=== PATIENT | female | born 1955 | race Caucasian/White ===

== ENCOUNTER 2017-07-09 08:45 | Day surgery (SDC) | payer BC ==
[~2017-07-09 08:45] MED LIST: Acetaminophen TAB* 325 MG PO PRN; Buffered Lidocaine 0.9% SYRIN* 5 ML/SYR SYRINGE INTRADERM ONE
[2017-07-09] MEDS ORDERED: Midazolam* 1 MG/ML 2 ML VIAL (2 MG) ONE (09:19)
[2017-07-09] MEDS ORDERED: Phenylephrine 2.5% OPTH.SOL* 2 ML BTL ONE (09:54)
[2017-07-09] MEDS ORDERED: Cyclopentolate 1% OPTH.SOL* 2 ML BTL ONE (09:54)
[2017-07-09] MEDS ORDERED: Lidocaine 1% MPF* 2 ML VIAL ONE (09:54)
[2017-07-09] MEDS ORDERED: Povidone Iodine 5% OPTH* 30 ML BTL ONE (09:54)
[2017-07-09] MEDS ORDERED: Neomycin/Polymy/Dex OPHTH.OIN* 3.5 GM ONE (09:54)
[2017-07-09] MEDS ORDERED: acetaZOLAMIDE TAB* 250 MG ONE (09:54)
[2017-07-09] MEDS ORDERED: Tropicamide 1% OPTH.SOL* BTL ONE (09:55)
[2017-07-09] MEDS ORDERED: Tetracaine 0.5% OPTH.SOL 4 ML* 1 DROP BTL ONE (09:55)
[2017-07-09 10:43] VITALS: BP 118/65
--- NOTE | 2017-07-10 05:10 | OP ---
DATE OF OPERATION: 07/09/17 - [facility] DATE OF : 55 SURGEON: Jhony Mcgill MD. ANESTHESIOLOGIST: Justina Mir MD ANESTHESIA: Monitored anesthesia care. PRE-OP DIAGNOSIS: Cataract, right eye. POST-OP DIAGNOSES: Cataract, right eye. OPERATIVE PROCEDURE: Extracapsular cataract extraction of the right eye with intraocular lens implant. IMPLANTS: SN60WF 11.5 diopter lens to the right eye. COMPLICATIONS: None. DESCRIPTION OF PROCEDURE: The patient was given phenylephrine 2.5% and cyclopentolate 1% eyedrops to the operative eye in the preoperative area. The patient was brought to the operating room where a time-out was taken to identify the correct patient, site, and side of surgery. The patient's right eye was prepped and draped in the usual sterile fashion with 5% Betadine. A second time- out was taken to verify the correct patient, site, and side of surgery, and correct lens selection. A lid speculum was placed to the left eye. A 1-mm paracentesis blade was used to make a clear corneal incision in the superotemporal position. A preservative free 1% lidocaine was injected in the anterior chamber. A DisCoVisc was injected into the anterior chamber. A 2.75-mm keratome blade was used to make a triplanar incision at the inferotemporal position. A cystotome initiated a capsulorrhexis which was completed with Utrata forceps in a continuous and curvilinear manner. Hydrodissection of the lens was performed with BSS on a cannula. The lens could be spun in the capsular bag. The phacoemulsification handpiece was used with a gnqzki-mjj-pamkgzs technique to remove the nucleus in its entirety with 11.71 CDE. The I/A handpiece then removed the residual cortical lens material. DisCoVisc was injected to inflate the capsular bag. The planned SN60WF 11.5 Diopter lens was injected into the capsular bag. The residual DisCoVisc was removed from the eye with the I/A handpiece. The corneal incisions were hydrated and no leaks occurred at physiologic pressure around 20 mmHg per palpation. The lid speculum was removed and drapes removed. Maxitrol ointment was placed to the surface of the operative eye. An adhesive patch and shield was then placed on the operative eye. The patient was taken to the postoperative area in stable condition. [id number]/[facility] #: [id number] [place]
== END 2017-07-09 10:32 | disposition home or self-care (01) ==
LOC: OREAST 08:45
PROVIDERS: ATTEND Student in an Organized Health Care Education/Training Program
DX: H25.11 Age-related nuclear cataract, right eye (principal); Z87.891 Personal history of nicotine dependence; K58.9 Irritable bowel syndrome, unspecified; E04.9 Nontoxic goiter, unspecified
CPT/HCPCS: A9270-GY; J2250; V2632

== ENCOUNTER 2017-07-16 10:17 | Day surgery (SDC) | payer BC ==
[2017-07-16] MEDS ORDERED: Midazolam* 1 MG/ML 2 ML VIAL (2 MG) ONE (10:23)
[2017-07-16 11:40] VITALS: BP 130/76
[2017-07-16] MEDS ORDERED: Phenylephrine 2.5% OPTH.SOL* 2 ML BTL ONE (14:34)
[2017-07-16] MEDS ORDERED: Cyclopentolate 1% OPTH.SOL* 2 ML BTL ONE (14:34)
[2017-07-16] MEDS ORDERED: Tetracaine 0.5% OPTH.SOL 4 ML* 1 DROP BTL ONE (14:34)
[2017-07-16] MEDS ORDERED: acetaZOLAMIDE TAB* 250 MG ONE (14:34)
[2017-07-16] MEDS ORDERED: Lidocaine 1% MPF* 2 ML VIAL ONE (14:34)
[2017-07-16] MEDS ORDERED: Povidone Iodine 5% OPTH* 30 ML BTL ONE (14:34)
[2017-07-16] MEDS ORDERED: Ketorolac 0.5% OPHTH (NF) 0.5 % 5 ML BTL ONE (14:34)
[2017-07-16] MEDS ORDERED: Neomycin/Polymy/Dex OPHTH.OIN* 3.5 GM ONE (14:34)
[2017-07-16] MEDS ORDERED: Tropicamide 1% OPTH.SOL* BTL ONE (14:34)
--- NOTE | 2017-07-17 04:56 | OP ---
DATE OF OPERATION: 04/15/18 - [facility] DATE OF : 55 SURGEON: Jhony Mcgill MD ANESTHESIOLOGIST: Ave [place] MD ANESTHESIA: Monitored anesthesia care. PRE-OP DIAGNOSIS: Cataract, left eye. POST-OP DIAGNOSIS: Cataract, left eye. OPERATIVE PROCEDURE: Extracapsular cataract extraction of the left eye with intraocular lens implant. IMPLANTS: SN60WF 11.5 diopter lens to the left eye. COMPLICATIONS: None. DESCRIPTION OF PROCEDURE: The patient was given phenylephrine 2.5% and cyclopentolate 1% eye drops to the operative eye in the preoperative area. The patient was brought to the operating room where a time-out was taken to identify the correct patient, site, and side of surgery. The patient's left eye was prepped and draped in the usual sterile fashion with 5% Betadine. A second time-out was taken to verify the correct patient, site, and side of surgery, and correct lens selection. A lid speculum was placed to the left eye. A 1-mm paracentesis blade was used to make a clear corneal incision in the inferotemporal position. Preservative-free 1% lidocaine was injected into the anterior chamber. DisCoVisc was then injected into the anterior chamber. A 2.75-mm keratome blade was used to make a triplanar incision at the superotemporal position. A cystotome initiated a capsulorrhexis, which was completed with Utrata forceps in a continuous and curvilinear manner. Hydrodissection of the lens was performed with BSS on a cannula. The lens could be spun in the capsular bag. The phacoemulsification handpiece was used with a [id number]-ald-wpbvhcv technique to remove the nucleus in its entirety with 11.5 CDE. The I/A handpiece then removed the residual cortical lens material. DisCoVisc was injected to inflate the capsular bag. The planned SN60WF 11.5 diopter lens was then injected into the capsular bag. The residual DisCoVisc was removed from the eye with the I/A handpiece. The corneal incisions were hydrated and no leaks occurred at physiologic pressure around 20 mmHg per palpation. The lid speculum was removed and drapes removed. Maxitrol ointment was placed on the surface of the operative eye. An adhesive patch and shield was then placed on the operative eye. The patient was taken to the postoperative area in stable condition. [id number]/[facility] #: [id number] [place]
== END 2017-07-16 11:41 | disposition home or self-care (01) ==
LOC: OREAST 10:17
PROVIDERS: ATTEND Student in an Organized Health Care Education/Training Program
DX: H25.12 Age-related nuclear cataract, left eye (principal); Z87.891 Personal history of nicotine dependence; G43.909 Migraine, unspecified, not intractable, without status migrainosus; F41.9 Anxiety disorder, unspecified
CPT/HCPCS: A9270-GY; J2250; V2632

== ENCOUNTER 2018-12-11 09:01 | Emergency (ER) | payer BC, OTHER ==
--- OUTSIDE RECORDS SUMMARY | 2018-12-11 09:12 | XMS REPORT | Continuity of Care Document ---
:1955 External Reference #:[id number] Author Name AaronarnelMedey Care Team Providers Name Role Phone Rhona Street MD Primary Care Physician Unavailable Payers Date Identification Numbers Payment Provider Subscriber Policy Number: [id number] [facility] Cary Johns PayID: [id number] [address] [place] [address] Expires: 2018 Policy Number: [id number] [facility] Insurance [facility] Cary Johns Onset: 2018 Group Number: [id number] [phone] [place] [address] PayID: [id number] [place] [address] Onset: 2018 Policy Number: [id number] [facility] Cary Johns Group Number: [id number] [phone] [address] [address] Group Name: [email or web address] [address] PayID: [facility] Advance Directives Type Date Description Status Comment Other Directive 12/09/2013 Current and Verified Problems Active Problems Provider Date Migraine Florence Skinner, N.P. Onset: 11/24/2011 Irritable bowel syndrome Florence Skinner, N.P. Onset: 11/24/2011 Anxiety state Florence Skinner, N.P. Onset: 11/24/2011 Non-toxic multinodular goiter Florence Skinner, N.P. 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 3 years End: Unknown Smoker 1 Pack Daily Tobacco Use Start: Unknown Secondhand smoke Co-workers, neighbors. Not inside Smoking Status Reviewed: 11/21/18 Secondhand smoke Co-workers, neighbors. Not inside ETOH Use Rarely consumes beer Tobacco Use Start: Unknown Patient is a former End: Unknown smoker Recreational Drug Use Denies Drug Use Exercise Type/Frequency Exercises regularly Exercise Type/Frequency Exercises at a health club 3 times a week Exercise Type/Frequency Physical therapy For left knee. 2x per week Allergies, Adverse Reactions, Alerts Active Allergies Reaction Severity Comments Date Latex 04/22/2015 Aleve Urticaria, Swollen lips 05/13/2015 Ibuprofen 08/10/2015 Flovent rash, hives, swelling 09/03/2018 Inactive Allergies No Known Drug Allergy 08/26/2009 Medications Active Medications SIG Qnty Indications Ordering Date Provider Cpap Pt requesting to Denice Quintana, 11/08/2018 discontinue her cpap Mandibular please fabricate Cindy 10/30/2018 Advancement Device mandibular carolyn Bojorquez NP device for sleep Device apnea Aspercreme apply twice daily 6units Joseph Beckham, 10/03/2018 W/Lidocaine to the painful M.D. 4% Cream joints as needed Acetaminophen ER 1 tab by mouth q4 60tabs Florence Varn, 06/07/2018 650mg hours as needed N.P. Tablets ER pain Hyoscyamine Sulfate take 1 tablet by 30tabs K58.0 Florence Varn, 2013 mouth every 4 N.P. 0.125mg Tablets hours if needed Dispers for ibs Valacyclovir HCL take 2 tablets by 30tabs Florence Varn, 06/24/2013 1gm mouth and repeat N.P. Tablets in 12 hours if needed Alprazolam one by mouth up to 30tabs F41.9 Florence Varn, 04/08/2012 0.25mg three times daily N.P. Tablets as needed for anxiety Sumatriptan Succinate take 1 tablet by 12tabs Floernce Skinner, 11/24/2010 mouth if needed N.P. 50mg Tablets --- max 4/day and 16/month Hydrocortisone Mary Duckworth 2.5% MD Samy Ointment Zinc 1 by mouth every Unknown 30mg Capsules day Magnesium Unknown 250mg Tablets Vitamin B12 1 by mouth every Unknown 1000mcg day Tablets ER Vitamin C Unknown 500mg Chewtabs Claritin 1 by mouth every Unknown 10mg Tablets day as needed during spring Nyquil Severe By mouth as needed Unknown Cold/Flu 5-6.25-10-325mg/15ML Liquid Benadryl Allergy 1 by mouth at Unknown 25mg night as needed Tablets (to help with sleep per pt) Vitamin E 1 by mouth one Unknown time per day Proair HFA 2 puffs by mouth 8.500gm Denice Quintana, 108(90Base) every 4 hours as mcg/Act Aerosol needed Vitamin D 1 by mouth one Unknown 1000Unit time per day Tablets History Medications Flovent HFA inhale 2 puffs by 21.2units J45.909 Denice 06/20/2018 - 44mcg/Act mouth two times MD Mariano 09/03/2018 Aerosol daily Ventolin HFA 1 to 2 18units Florence Skinner, 06/10/2018 - inhalations every N.P. 06/19/2018 108(90Base) mcg/Act 4 hours as needed Aerosol Cyclobenzaprine HCL take 1 tablet at 30tabs M54.9 Rhona 09/25/2017 - 5mg bedtime as needed [address] 11/24/2017 Tablets Diclofenac Sodium Apply to the hand 100units M19.041 Rhona 08/25/2016 - 1% twice daily [address] 06/07/2017 Gel Cyclobenzaprine HCL take one tablet 30tabs R51 Leonid Garvey NP 05/04/2016 - 5mg by mouth every 12 06/07/2017 Tablets hours as needed Valacyclovir HCL 1 tablet three 21tabs R21 Leonid Mare, CLIP LOADING MACHINE ADJUSTER 04/17/2016 - 1gm times a day x 7 04/24/2016 Tablets days Cephalexin take one tablet 21tabs R21 Leonid DANIEL Garvey 04/17/2016 - 500mg every 8 hours for 04/24/2016 Tablets 7 days Fluticasone 1 sprays each 16units J30.9 Florence Skinner, 12/13/2015 - Propionate nostril daily as N.P. 12/12/2016 50mcg/Act needed Suspension Amoxicillin 1 by mouth three 30tabs J01.90 Rhona 05/13/2015 - 500mg times a day for [address] 08/10/2015 Tablets 10 days Cyclobenzaprine HCL 1 by mouth at 30tabs 724.5 Florence Skinner, 12/22/2014 - 5mg bedtime as needed N.P. 08/10/2015 Tablets for back pain Denavir apply three times 5gm Z00.01 Rhona 12/09/2014 - 1% Cream daily as needed [address] 02/27/2018 Ciprofloxacin HCL one by mouth 14tabs 599.70 Florence Skinner, 05/04/2014 - 250mg twice a day for 7 N.P. 05/11/2014 Tablets days Denavir apply three times 30.0units 054.2 Florence Skinner, 12/08/2013 - 1% Cream daily as needed N.P. 05/04/2014 Fluticasone 1 spray each 16gm 381.81 Florence Skinner, 10/21/2013 - Propionate nostril daily as N.P. 05/04/2014 50mcg/Act needed Suspension Voltaren apply to affected 1tube Katarzyna Hernandez, 05/17/2012 - 1% Gel area as needed Vega, [facility] 09/18/2013 Ibuprofen 1 po q 6 hr prn 90tabs Florence Skinner, 03/11/2012 - 600mg Tablets N.P. 09/18/2013 Ciprofloxacin HCL one po bid for 7 14tabs 599.70 Rhona 11/30/2011 - 250mg days [address] 12/07/2011 Tablets Zoloft 1 po qd 30tabs Katarzyna Hernandez, 11/11/2009 - 25mg Tablets M.D., FACP 11/24/2011 Valtrex 2 po and repeat 30tabs Katarzyna Hernandez, 10/26/2009 - 1gm Tablets iin 12 hours prn M.D., FACP 06/24/2013 Imitrex 1 PO prn Headache Katarzyna Hernandez, 10/26/2009 - 50mg Tablets M.D., FACP 11/24/2010 Neurontin 1-4 Tabs PO QHS 90caps Katarzyna Hernandez, 10/26/2009 - 100mg M.D., FACP 11/11/2009 Capsules Paroxetine HCL 1 PO qd Katarzyna Hernandez, 10/26/2009 - 20mg [facility]., [facility] 11/11/2009 Tablets Etodolac ER qd prn for dental 90tabs Unknown - 400mg proceedure 09/18/2013 Tablets ER 24HR Peppermint Plus Unknown - 06/15/2014 Organic Gas Relief Unknown - Tea 06/15/2014 Desoximetasone Unknown - 06/15/2014 Citalopram 1 by mouth every Unknown - Hydrobromide day 08/10/2015 20mg Tablets Imitrex one tablet as Unknown - 50mg Tablets needed for 12/13/2015 headache Multi Complete daily Unknown - 06/19/2018 Capsules Probiotic 1 by mouth every Unknown - Capsules day 06/07/2017 Miralax 17 gm every day Unknown - [id number] Packet as needed 06/15/2016 Cod Liver Oil 1 by mouth every Unknown - Capsules day 04/17/2016 Valacyclovir HCL Cami, - 500mg MD Mu 07/06/2016 Tablets Cyclobenzaprine HCL 1 tablet by mouth Unknown - q8 hours as 06/19/2018 10mg Tablets needed muscle spasms Medications Administered in Office Medication SIG Qnty Indications Ordering Provider Date Depomedrol 80MG Cindy Elliott M.D. 04/22/2015 Injection Depomedrol 80MG Cindy Elliott M.D. 05/21/2014 Injection Depomedrol 80MG Cindy Elliott M.D. 07/24/2013 Injection Depomedrol 80MG Cindy Elliott M.D. 01/09/2013 Injection Celestone 3 mg and 3mg Bridget Bonilla, 04/01/2012 Injection V[facility] Immunizations CPT Code Status Date Vaccine Reaction Lot # [id number] Given 03/07/2017 Influenza Virus Vaccine, No immediate reaction [id number] Quadrivalent, Split, noted...jh Preservative Free 47917 Given 11/18/2015 Hepatitis B Vaccine Adult Dosage 97973 Given 03/20/2012 Zoster (Zostavax) [id number] 94878 Given 04/22/2009 Tdap - [id number] Tetanus/Diptheria/Acellular Pertussis 74667 Given 04/05/2009 Influenza Virus 3Yrs & Over [id number] Given 04/24/2008 Influenza Virus 3Yrs & Over 06584 Given 04/29/2007 Influenza Virus 3Yrs & Over Vital Signs Date Vital Result Comment 11/21/2018 2:19pm Height 65.75 inches 5'5.75" Weight 143.50 lb Heart Rate 78 /min BP Systolic Sitting 118 mmHg Rue reg cuff BP Diastolic Sitting 80 mmHg Rue reg cuff Respiratory Rate 18 /min O2 % BldC Oximetry 95 % On Ra BMI (Body Mass Index) 23.3 kg/m2 10/03/2018 1:25pm Height 65.75 inches 5'5.75" Weight 145.50 lb Heart Rate 80 /min BP Systolic Sitting 122 mmHg BP Diastolic Sitting 76 mmHg Pain Level 1 O2 % BldC Oximetry 98 % BMI (Body Mass Index) 23.7 kg/m2 09/17/2018 1:51pm Height 65.75 inches 5'5.75" Weight 149.00 lb Heart Rate 88 /min BP Systolic Sitting 112 mmHg Lue regular cuff BP Diastolic Sitting 80 mmHg Lue regular cuff Respiratory Rate 12 /min O2 % BldC Oximetry 97 % BMI (Body Mass Index) 24.2 kg/m2 09/03/2018 1:59pm Height 65.75 inches 5'5.75" Weight 149.00 lb Heart Rate 84 /min BP Systolic Sitting 130 mmHg BP Diastolic Sitting 86 mmHg Respiratory Rate 14 /min Pain Level 2 BMI (Body Mass Index) 24.2 kg/m2 06/20/2018 12:16pm Height 65.75 inches 5'5.75" Weight 148.38 lb Heart Rate 80 /min BP Systolic Sitting 112 mmHg Lue reg cuff BP Diastolic Sitting 76 mmHg Lue reg cuff Respiratory Rate 16 /min O2 % BldC Oximetry 96 % On Ra BMI (Body Mass Index) 24.1 kg/m2 Neck Circumference in inches 13.25 06/07/2018 1:25pm Height 65.75 inches 5'5.75" Weight 150.00 lb Heart Rate 88 /min BP Systolic 124 mmHg BP Diastolic 78 mmHg Body Temperature 98.0 F O2 % BldC Oximetry 96 % BMI (Body Mass Index) 24.4 kg/m2 04/16/2018 1:07pm Height 65.75 inches 5'5.75" Weight 151.00 lb w/ shoes Heart Rate 78 /min BP Systolic Sitting 121 mmHg BP Diastolic Sitting 70 mmHg BMI (Body Mass Index) 24.6 kg/m2 04/12/2018 2:30pm Height 65.75 inches 5'5.75" Weight 149.00 lb Heart Rate 95 /min BP Systolic Sitting 121 mmHg BP Diastolic Sitting 69 mmHg Body Temperature 97.1 F BMI (Body Mass Index) 24.2 kg/m2 02/27/2018 2:55pm Height 65.75 inches 5'5.75" Weight 154.00 lb Heart Rate 85 /min BP Systolic 110 mmHg BP Diastolic 62 mmHg Body Temperature 98.5 F O2 % BldC Oximetry 97 % BMI (Body Mass Index) 25.0 kg/m2 09/25/2017 9:50am Weight 146.25 lb Heart Rate 78 /min BP Systolic Sitting 122 mmHg BP Diastolic Sitting 80 mmHg Body Temperature 98.0 F O2 % BldC Oximetry 98 % 06/20/2017 2:32pm Height 66 inches 5'6" Weight 145.00 lb Heart Rate 71 /min BP Systolic Sitting 122 mmHg BP Diastolic Sitting 78 mmHg Body Temperature 97.6 F O2 % BldC Oximetry 98 % BMI (Body Mass Index) 23.4 kg/m2 06/08/2017 8:53am Height 66 inches 5'6" Weight 146.00 lb Heart Rate 76 /min BP Systolic Sitting 130 mmHg BP Diastolic Sitting 84 mmHg Body Temperature 96.7 F O2 % BldC Oximetry 98 % BMI (Body Mass Index) 23.6 kg/m2 03/07/2017 1:28pm Height 66.5 inches 5'6.50" Weight 148.75 lb Heart Rate 75 /min BP Systolic 120 mmHg BP Diastolic 64 mmHg Body Temperature 97.7 F O2 % BldC Oximetry 98 % BMI (Body Mass Index) 23.6 kg/m2 08/30/2016 3:20pm Height 66 inches 5'6" Weight 150.00 lb Respiratory Rate 16 /min Pain Level 3 BMI (Body Mass Index) 24.2 kg/m2 08/25/2016 3:29pm Weight 150.00 lb with shoes Heart Rate 71 /min BP Systolic 114 mmHg BP Diastolic 80 mmHg Body Temperature 97.6 F O2 % BldC Oximetry 98 % 07/06/2016 7:35am Weight 151.00 lb with shoes Heart Rate 87 /min BP Systolic Sitting 120 mmHg BP Diastolic Sitting 80 mmHg Body Temperature 98.6 F O2 % BldC Oximetry 98 % 06/15/2016 3:17pm Heart Rate 76 /min BP Systolic Sitting 126 mmHg BP Diastolic Sitting 82 mmHg Respiratory Rate 15 /min Body Temperature 98.3 F O2 % BldC Oximetry 98 % 05/04/2016 2:03pm Weight 149.00 lb Heart Rate 76 /min BP Systolic Sitting 122 mmHg BP Diastolic Sitting 84 mmHg Respiratory Rate 15 /min Body Temperature 98.0 F O2 % BldC Oximetry 98 % 04/24/2016 1:53pm Weight 152.00 lb Heart Rate 74 /min BP Systolic Sitting 124 mmHg BP Diastolic Sitting 76 mmHg Respiratory Rate 15 /min Body Temperature 98.3 F O2 % BldC Oximetry 98 % 04/17/2016 11:03am Weight 148.00 lb Heart Rate 84 /min BP Systolic Sitting 112 mmHg BP Diastolic Sitting 60 mmHg Respiratory Rate 15 /min Body Temperature 98.1 F O2 % BldC Oximetry 98 % 12/13/2015 3:12pm Height 65.5 inches 5'5.50" Weight 146.00 lb Heart Rate 77 /min BP Systolic Sitting 128 mmHg BP Diastolic Sitting 76 mmHg Body Temperature 96.9 F O2 % BldC Oximetry 98 % BMI (Body Mass Index) 23.9 kg/m2 08/18/2015 3:50pm Weight 145.50 lb Heart Rate 75 /min BP Systolic Sitting 118 mmHg BP Diastolic Sitting 68 mmHg Body Temperature 97.7 F O2 % BldC Oximetry 98 % 08/10/2015 2:55pm Weight 147.50 lb Heart Rate 72 /min BP Systolic Sitting 111 mmHg BP Diastolic Sitting 60 mmHg Body Temperature 96.8 F Pain Level 2 O2 % BldC Oximetry 98 % 05/13/2015 2:13pm Weight 143.75 lb Heart Rate 93 /min BP Systolic Sitting 114 mmHg BP Diastolic Sitting 69 mmHg Body Temperature 98.6 F O2 % BldC Oximetry 98 % 04/22/2015 3:09pm Height 66 inches 5'6" Weight 140.00 lb Pain Level 1 BMI (Body Mass Index) 22.6 kg/m2 12/22/2014 1:04pm Weight 140.50 lb Heart Rate 67 /min BP Systolic Sitting 110 mmHg BP Diastolic Sitting 66 mmHg 12/09/2014 3:20pm Height 66 inches 5'6" Weight 141.00 lb Heart Rate 73 /min BP Systolic Sitting 119 mmHg BP Diastolic Sitting 65 mmHg BMI (Body Mass Index) 22.8 kg/m2 08/18/2014 1:21pm Height 66 inches 5'6" Weight 142.00 lb Heart Rate 86 /min BP Systolic 111 mmHg BP Diastolic 64 mmHg BMI (Body Mass Index) 22.9 kg/m2 08/05/2014 2:19pm Height 66 inches 5'6" Weight 142.00 lb Heart Rate 83 /min BP Systolic 106 mmHg BP Diastolic 69 mmHg Body Temperature 98.2 F BMI (Body Mass Index) 22.9 kg/m2 06/16/2014 1:57pm Height 66 inches 5'6" Weight 138.50 lb Heart Rate 83 /min BP Systolic Sitting 120 mmHg BP Diastolic Sitting 62 mmHg Body Temperature 98.0 F O2 % BldC Oximetry 98 % BMI (Body Mass Index) 22.4 kg/m2 05/21/2014 1:17pm Height 66 inches 5'6" Weight 143.00 lb Pain Level 8 BMI (Body Mass Index) 23.1 kg/m2 05/14/2014 10:40am Weight 144.50 lb Heart Rate 97 /min BP Systolic Sitting 110 mmHg BP Diastolic Sitting 64 mmHg Body Temperature 96.9 F 05/04/2014 2:36pm Height 66 inches 5'6" Weight 143.00 lb Heart Rate 78 /min BP Systolic Sitting 120 mmHg BP Diastolic Sitting 64 mmHg BMI (Body Mass Index) 23.1 kg/m2 12/08/2013 3:15pm Height 66 inches 5'6" Weight 141.75 lb Heart Rate 69 /min BP Systolic Sitting 111 mmHg BP Diastolic Sitting 64 mmHg BMI (Body Mass Index) 22.9 kg/m2 11/03/2013 11:03am Weight 140.50 lb Heart Rate 80 /min BP Systolic 120 mmHg BP Diastolic 68 mmHg Respiratory Rate 16 /min Body Temperature 97.5 F 10/21/2013 10:53am Weight 143.50 lb Heart Rate 84 /min BP Systolic Sitting 100 mmHg BP Diastolic Sitting 64 mmHg Body Temperature 97.8 F 09/18/2013 9:57am Weight 138.00 lb Heart Rate 73 /min BP Systolic Sitting 98 mmHg BP Diastolic Sitting 62 mmHg Body Temperature 97.7 F O2 % BldC Oximetry 97 % 07/24/2013 11:45am Heart Rate 76 /min BP Systolic 103 mmHg BP Diastolic 70 mmHg 12/11/2012 1:48pm Weight 142.00 lb Heart Rate 62 /min BP Systolic Sitting 120 mmHg BP Diastolic Sitting 76 mmHg 11/07/2012 2:30pm Weight 142.50 lb Heart Rate 60 /min BP Systolic Sitting 110 mmHg BP Diastolic Sitting 70 mmHg Body Temperature 97.7 F 09/26/2012 2:38pm Weight 140.00 lb Heart Rate 60 /min BP Systolic Sitting 110 mmHg BP Diastolic Sitting 70 mmHg 04/08/2012 9:43am Height 67 inches 5'7" Weight 147.50 lb Heart Rate 70 /min BP Systolic Sitting 110 mmHg BP Diastolic Sitting 70 mmHg BMI (Body Mass Index) 23.1 kg/m2 04/01/2012 11:30am Height 67 inches 5'7" Weight 146.00 lb Heart Rate 70 /min BP Systolic 116 mmHg BP Diastolic 73 mmHg BMI (Body Mass Index) 22.9 kg/m2 03/27/2012 11:36am Height 67 inches 5'7" Weight 146.00 lb Heart Rate 68 /min BP Systolic Sitting 120 mmHg BP Diastolic Sitting 84 mmHg BMI (Body Mass Index) 22.9 kg/m2 03/15/2012 8:39am Height 67 inches 5'7" Weight 147.25 lb Heart Rate 76 /min BP Systolic Sitting 98 mmHg BP Diastolic Sitting 60 mmHg BMI (Body Mass Index) 23.1 kg/m2 03/08/2012 9:59am Height 67 inches 5'7" Weight 146.00 lb Heart Rate 70 /min BP Systolic Sitting 118 mmHg BP Diastolic Sitting 70 mmHg BMI (Body Mass Index) 22.9 kg/m2 03/01/2012 3:54pm Height 67 inches 5'7" Weight 145.50 lb Heart Rate 68 /min BP Systolic Sitting 110 mmHg BP Diastolic Sitting 64 mmHg BMI (Body Mass Index) 22.8 kg/m2 01/24/2012 2:07pm Height 67 inches 5'7" Weight 146.00 lb Heart Rate 78 /min BP Systolic Sitting 100 mmHg BP Diastolic Sitting 62 mmHg BMI (Body Mass Index) 22.9 kg/m2 12/25/2011 2:34pm Height 67 inches 5'7" Weight 146.00 lb Heart Rate 76 /min BP Systolic Sitting 120 mmHg BP Diastolic Sitting 64 mmHg Body Temperature 98.4 F BMI (Body Mass Index) 22.9 kg/m2 11/30/2011 11:38am Height 67 inches 5'7" Weight 148.00 lb Heart Rate 76 /min BP Systolic Sitting 128 mmHg BP Diastolic Sitting 80 mmHg Body Temperature 98.5 F BMI (Body Mass Index) 23.2 kg/m2 11/24/2011 2:41pm Height 67 inches 5'7" Weight 148.00 lb Heart Rate 68 /min BP Systolic Sitting 110 mmHg BP Diastolic Sitting 66 mmHg BMI (Body Mass Index) 23.2 kg/m2 Results Test Date Facility Test Result H/L Range Note Celiac Panel 09/03/2018 [facility] Tissue <1.2 U/mL [address] [place]glut[place] [address] Ab [phone] Immunoglobulin A 206 mg/dL 61 - 356 Celiac Interpretation See Comment 2 Scleroderma AB 09/03/2018 [facility] Scleroderma Ab <0.2 U 3 (SCL70) [address] [place] [address] [phone] Laboratory test 09/03/2018 [facility] Nuclear AB (Ashley) <1:80 [address] By Ifa Igg (Negative) [place] [address] [phone] Lanette-1 Antibody <0.2 U 5 Vitamin B6 09/03/2018 [facility] Pyridoxal 5-Phosphate 9 g/L 5-[address] [place] [address] [phone] Pyridoxic Acid 7 g/L 3-30 7 Ssa/SSB Abs Igg 09/03/2018 [facility] SS-A/Ro Antibody <0.2 U [address] [place], [place] [id number] [phone] SS-B/La Antibody <0.2 U 9 Laboratory test 09/03/2018 [facility] Erythrocyte Sed 13 mm/Hr N 0-30 [address] [place] [address] [phone] Hla B27 09/03/2018 [facility] Hla B27 Negative [address] [place], [place] [id number] [phone] Hla B27 Interp See Comment 12 Celiac Hla 09/03/2018 [facility] Hla-Dqa1 SEE BELOW [address] [place] [address] [phone] Hla-DQB1 SEE BELOW 14 Celiac Gene Pairs Present? No Celiac Gene Interpretation See Comment 15 Laboratory test 09/03/2018 [facility] Creatine 100 U/L N 10- 223 [address] Kinase(CK) [place], [place] [id number] [phone] Protein 09/03/2018 [facility] Total 7.0 6.3 - 7.[address] Protein(Pep) g/dL [place], [place] [id number] [phone] Albumin 3.6 g/dL 3.4-4.7 Alpha-1 Globulin 0.2 g/dL 0.1-0.3 Alpha-2 Globulin 1.0 g/dL 0.6-1.0 Beta Globulin 1.1 g/dL 0.7-1.2 Gamma Globulin 1.1 g/dL 0.6-1.6 Albumin/Globulin Ratio 1.08 Impression See Comment 17 Laboratory 09/03/2018 [facility] Aso Negative <200 18 test finding [address] (Antistreptolysin O) IU/mL Iu/[place] [address] Titer [phone] Angiotensin Converting Enzyme 32 U/L 8 - 53 19 CRP High Sensitivity 2.05 mg/L High <2.00 20 Ferritin 55.7 ng/mL N 11-307 21 Anca AB Ser If 09/03/2018 [facility] C-Anca Negative Negative [address] [place], [place] [address] [phone] P-Anca Negative Negative 22 Vitamin B12 And 09/03/2018 [facility] Vitamin B12 616 pg/mL N 180-914 23 Folate Serum [address] [place] [address] [phone] Folic Acid (Folate) 13.80 ng/mL >3.99 24 Laboratory test 06/07/2018 [facility] Rheumatoid Factor < 10 IU/ mL N <[address] [place] [address] [phone] Cyclic Citrullinated Pep Igg <15.6 U 25 Erythrocyte Sed Rate 40 mm/Hr High 0-30 Nuclear AB (Ashley) By Ifa Igg <1:80 (Negative) 26 Vitamin D Total 25(Oh) 32.5 ng/mL N 20-50 Lyme Disease Serology Negative Negative 27 C Reactive Protein 4.53 mg/L N <8.01 Tick-Borne Panel 06/07/2018 [facility] Babesia Negative Negative PCR Blood [address] [facility] [place] [address] [phone] Babesia ducani Negative Negative Babesia divergens/Mo-1 Negative Negative 28 Anaplasma phagocytophilum Negative Negative Ehrlichia chaffeensis Negative Negative Ehrlichia ewingii/canis Negative Negative Ehrlichia muris-like Negative Negative 29 B. miyamotoi PCR, B Negative Negative 30 Laboratory test 04/16/2018 [facility] TSH (Thyroid 0.96 mcIU/mL N 0.34-5.[address] Stim Horm) [place] [address] [phone] Free T4 (Free Thyroxine) 0.75 ng/dL N 0.61-1.12 T3 Free 3.80 pg/mL N 2.5-3.9 Thyroperoxidase AB 1.24 IU/mL N <9 Lipid Profile 02/22/2018 [facility] Triglycerides 62 mg/dL 31 (Trig/Chol/HDL) [address] [place] [address] [phone] Cholesterol 246 mg/dL 32 HDL Cholesterol 69.9 mg/dL 33 LDL Cholesterol 164 mg/dL 34 Comp Metabolic Panel 02/22/2018 [facility] Albumin 4.2 g/dL N 3.2-5.2 [address] [place] [address] [phone] Sodium 142 mmol/L N 135-145 Potassium 4.3 mmol/L N 3.5-5.0 Chloride 105 mmol/L N 101-111 Co2 Carbon Dioxide 30 mmol/L N 22-32 Anion Gap 7 mmol/L N 2-11 Glucose 104 mg/dL High 70-100 Blood Urea Nitrogen 13 mg/dL N 6-24 Creatinine 0.73 mg/dL N 0.51-0.95 BUN/Creatinine Ratio 17.8 N 8-20 Calcium 9.4 mg/dL N 8.6-10.3 Total Bilirubin 0.50 mg/dL N 0.2-1.0 Alkaline Phosphatase 103 U/L N 34-104 Alt 12 U/L N 7-52 Ast 20 U/L N 13-39 Egfr Non- 80.8 >60 Egfr 97.7 >60 35 Total Protein 6.7 g/dL N 6.4-8.9 Globulin 2.5 g/dL N 2-4 Albumin/Globulin Ratio 1.7 N 1-3 Comp Metabolic Panel 03/31/2017 [facility] Sodium 141 mmol/L N 133-[address] [place] [address] [phone] Potassium 4.0 mmol/L N 3.5-5.0 Chloride 105 mmol/L N 101-111 Co2 Carbon Dioxide 30 mmol/L N 22-32 Anion Gap 6 mmol/L N 2-11 Glucose 87 mg/dL N 70-100 Blood Urea Nitrogen 16 mg/dL N 6-24 Creatinine 0.69 mg/dL N 0.51-0.95 BUN/Creatinine Ratio 23.2 High 8-20 Calcium 9.3 mg/dL N 8.6-10.3 Total Protein 6.7 g/dL N 6.4-8.9 Albumin 4.2 g/dL N 3.2-5.2 Globulin 2.5 g/dL N 2-4 Albumin/Globulin Ratio 1.7 N 1-3 Total Bilirubin 0.40 mg/dL N 0.2-1.0 Alkaline Phosphatase 78 U/L N 34-104 Alt 6 U/L Low 7-52 Ast 15 U/L N 13-39 Egfr Non- 86.2 N >60 Egfr 110.9 N >60 36 Lipid Profile 03/31/2017 [facility] Triglycerides 59 mg/dL N 37 (Trig/Chol/HDL) [address] [place] [address] [phone] Cholesterol 209 mg/dL N 38 HDL Cholesterol 58.3 mg/dL N 39 LDL Cholesterol 139 mg/dL N 40 Laboratory test 03/31/2017 [facility] TSH (Thyroid 0.37 mcIU/mL N 0.34-5.60 [address] Stim Horm) [place] [address] [phone] Laboratory test 03/07/2017 [facility] Cytology SEE RESULT [address] [place] [address] [phone] HPV Rna Ww/Reflex Genotype Negative N Negative 43 Arthritis Panel 08/30/2016 [facility] Uric Acid 4.1 mg/dL N 2.3-6.[address] [place] [address] [phone] Erythrocyte Sed Rate 22 mm/Hr N 0-30 Rheumatoid Factor <15 IU/mL N <15 44 Anti-Nuclear Antibody 0.4 U N 45 Cyclic Citrullinated Peptide <15.6 U N 46 Interpretation See Comment N 47 CBC Auto Diff 08/30/2016 [facility] White Blood 6.2 10^3/uL N 3.5-10.[address] [place] [address] [phone] Red Blood Count 3.88 10^6/uL Low 4.0-5.4 Hemoglobin 12.5 g/dL N 12.0-16.0 Hematocrit 37 % N 35-47 Mean Corpuscular Volume 94 fL N 80-97 Mean Corpuscular Hemoglobin 32 pg High 27-31 Mean Corpuscular HGB Conc 34 g/dL N 31-36 Red Cell Distribution Width 14 % N 10.5-15 Platelet Count 353 10^3/uL N 150-450 Mean Platelet Volume 7 um3 Low 7.4-10.4 Abs Neutrophils 3.3 10^3/uL N 1.5-7.7 Abs Lymphocytes 2.2 10^3/uL N 1.0-4.8 Abs Monocytes 0.5 10^3/uL N 0-0.8 Abs Eosinophils 0.1 10^3/uL N 0-0.6 Abs Basophils 0 10^3/uL N 0-0.2 Abs Nucleated RBC 0.01 10^3/uL N Granulocyte % 53.8 % N 38-83 Lymphocyte % 35.2 % N 25-47 Monocyte % 8.0 % N 1-9 Eosinophil % 2.4 % N 0-6 Basophil % 0.6 % N 0-2 Nucleated Red Blood Cells % 0.1 N Laboratory test 08/30/2016 [facility] Lyme Disease Equivocal N Negative [address] [place] [address] [phone] Lyme Western 08/30/2016 [facility] Lyme Disease Negative N Negative Blot [address] [place] [address] [phone] Lyme Disease IgG Bands Present p41, kDa N Lyme Disease IgM Ab WB Negative N Negative Lyme Disease IgM Bands Present No bands detecte <SEE NOTE> kDa N 49 Lyme Disease Interpretation See Comment N 50 Urinalysis Profile 04/19/2016 [facility] Urine Color Straw N [address] [place] [address] [phone] Urine Appearance Clear N Urine Specific [place] 1.005 Low 1.010-1.030 Urine pH 6.0 N 5-9 Urine Urobilinogen Negative N Negative Urine Ketones Negative N Negative Urine Protein Negative N Negative Urine Leukocytes Negative N Negative Urine Blood Negative N Negative Urine Nitrite Negative N Negative Urine Bilirubin Negative N Negative Urine Glucose Negative N Negative CBC Auto Diff 04/19/2016 [facility] White Blood 5.2 10^3/uL N 3.5-10.[address] [place] [address] [phone] Red Blood Count 4.31 10^6/uL N 4.0-5.4 Hemoglobin 13.5 g/dL N 12.0-16.0 Hematocrit 40 % N 35-47 Mean Corpuscular Volume 93 fL N 80-97 Mean Corpuscular Hemoglobin 31 pg N 27-31 Mean Corpuscular HGB Conc 34 g/dL N 31-36 Red Cell Distribution Width 13 % N 10.5-15 Platelet Count 348 10^3/uL N 150-450 Mean Platelet Volume 7 um3 Low 7.4-10.4 Abs Neutrophils 3.0 10^3/uL N 1.5-7.7 Abs Lymphocytes 1.6 10^3/uL N 1.0-4.8 Abs Monocytes 0.4 10^3/uL N 0-0.8 Abs Eosinophils 0.1 10^3/uL N 0-0.6 Abs Basophils 0 10^3/uL N 0-0.2 Abs Nucleated RBC 0 10^3/uL N Granulocyte % 58.3 % N 38-83 Lymphocyte % 31.4 % N 25-47 Monocyte % 7.8 % N 1-9 Eosinophil % 1.9 % N 0-6 Basophil % 0.6 % N 0-2 Nucleated Red Blood Cells % 0 N Comp Metabolic Panel 04/19/2016 [facility] Sodium 138 mmol/L N 133-[address] [place] [address] [phone] Potassium 3.9 mmol/L N 3.5-5.0 Chloride 102 mmol/L N 101-111 Co2 Carbon Dioxide 31 mmol/L N 22-32 Anion Gap 5 mmol/L N 2-11 Glucose 95 mg/dL N 70-100 Blood Urea Nitrogen 11 mg/dL N 6-24 Creatinine 0.82 mg/dL N 0.51-0.95 BUN/Creatinine Ratio 13.4 N 8-20 Calcium 10.0 mg/dL N 8.6-10.3 Total Protein 7.5 g/dL N 6.4-8.9 Albumin 4.6 g/dL N 3.2-5.2 Globulin 2.9 g/dL N 2-4 Albumin/Globulin Ratio 1.6 N 1-3 Total Bilirubin 0.40 mg/dL N 0.2-1.0 Alkaline Phosphatase 91 U/L N 34-104 Alt 16 U/L N 7-52 Ast 29 U/L N 13-39 Egfr Non- 70.9 N >60 Egfr 91.1 N >60 51 Laboratory 12/13/2015 [facility] TSH (Thyroid Stim 0.80 N 0.34 -5.60 test finding [address] Horm) ?IU/[place] [address] [phone] Lipid Profile 12/04/2015 [facility] Triglycerides 99 mg/dL N 52 (Trig/Chol/HDL [address] ) [place] [address] [phone] Cholesterol 221 mg/dL N 53 HDL Cholesterol 55.2 mg/dL N 54 LDL Cholesterol 146 mg/dL N 55 Laboratory test 12/04/2015 [facility] Glucose 87 mg/dL N 70- 100 [address] [place] [address] [phone] Laboratory test 08/09/2015 [facility] Blood Urea 11 mg/dL N 6- [address] [place] [address] [phone] Creatinine 08/09/2015 [facility] Creatinine 0.74 mg/dL N 0.51- 0.[address] [place] [address] [phone] Egfr Non- 80.1 N >60 Egfr 103.0 N >60 57 Ua Routine 12/09/2014 [facility] Ua Specific [place] 1.000 Ua PH 5.0 Ua Color yellow Ua Appera clear Ua WBC neg Ua Protein neg Ua Glucose neg Ua Ketones neg Ua Bilirubin neg Ua Urobilinogen normal Ua Nitrite neg Ua Occult Blood neg Comp Metabolic Panel 11/28/2014 [facility] Sodium 139 mmol/L N 133-[address] [place] [address] [phone] Potassium 4.0 mmol/L N 3.5-5.0 Chloride 104 mmol/L N 101-111 Co2 Carbon Dioxide 30 mmol/L N 22-32 Anion Gap 5 mmol/L N 2-11 Glucose 88 mg/dL N 70-100 Blood Urea Nitrogen 13 mg/dL N 6-24 Creatinine 0.75 mg/dL N 0.51-0.95 BUN/Creatinine Ratio 17.3 N 8-20 Calcium 9.4 mg/dL N 8.6-10.3 Total Protein 6.4 g/dL N 6.4-8.9 Albumin 4.3 g/dL N 3.2-5.2 Globulin 2.1 g/dL N 2-4 Albumin/Globulin Ratio 2.0 N 1-3 Total Bilirubin 0.50 mg/dL N 0.2-1.0 Alkaline Phosphatase 86 U/L N 34-104 Alt 6 U/L Low 7-52 Ast 14 U/L N 13-39 Egfr Non- 79.1 N >60 Egfr 101.7 N >60 58 Lipid Profile 11/28/2014 [facility] Triglycerides 108 mg/dL N 59 (Trig/Chol/HDL) [address] [place] [address] [phone] Cholesterol 223 mg/dL N 60 HDL Cholesterol 61.1 mg/dL N 61 LDL Cholesterol 140 mg/dL N 62 Laboratory test 10/06/2014 [facility] Human Negative N Negative [address] [address] Virus Rna [phone] CBC Auto Diff 09/30/2014 [facility] White Blood 5.1 10^3/uL N 4.8-10.[address] [place] [address] [phone] Red Blood Count 4.03 10^6/uL N 4.0-5.4 Hemoglobin 13.4 g/dL N 12.0-16.0 Hematocrit 40 % N 35-47 Mean Corpuscular Volume 98 fL High 80-97 Mean Corpuscular Hemoglobin 33 pg High 27-31 Mean Corpuscular HGB Conc 34 g/dL N 31-36 Red Cell Distribution Width 14 % N 10.5-15 Platelet Count 328 10^3/uL N 150-450 Mean Platelet Volume 7 um3 Low 7.4-10.4 Abs Neutrophils 2.6 10^3/uL N 1.5-7.7 Abs Lymphocytes 1.8 10^3/uL N 1.0-4.8 Abs Monocytes 0.5 10^3/uL N 0-0.8 Abs Eosinophils 0.1 10^3/uL N 0-0.6 Abs Basophils 0.1 10^3/uL N 0-0.2 Abs Nucleated RBC 0 10^3/uL N Granulocyte % 51.1 % N 38-83 Lymphocyte % 35.0 % N 25-47 Monocyte % 10.5 % High 1-9 Eosinophil % 2.4 % N 0-6 Basophil % 1.0 % N 0-2 Nucleated Red Blood Cells % 0.1 N Comp Metabolic Panel 09/30/2014 [facility] Sodium 139 mmol/L N 133-[address] [place] [address] [phone] Potassium 3.7 mmol/L N 3.5-5.0 Chloride 103 mmol/L N 101-111 Co2 Carbon Dioxide 30 mmol/L N 22-32 Anion Gap 6 mmol/L N 2-11 Glucose 89 mg/dL N 70-100 Blood Urea Nitrogen 14 mg/dL N 6-24 Creatinine 0.72 mg/dL N 0.51-0.95 BUN/Creatinine Ratio 19.4 N 8-20 Calcium 9.4 mg/dL N 8.6-10.3 Total Protein 7.1 g/dL N 6.4-8.9 Albumin 4.4 g/dL N 3.2-5.2 Globulin 2.7 g/dL N 2-4 Albumin/Globulin Ratio 1.6 N 1-3 Total Bilirubin 0.20 mg/dL N 0.2-1.0 Alkaline Phosphatase 88 U/L N 34-104 Alt 10 U/L N 7-52 Ast 17 U/L N 13-39 Egfr Non- 82.9 N >60 Egfr 106.6 N >60 64 Laboratory test 09/30/2014 [facility] LDH 136 U/L Low 140-[address] [place] [address] [phone] Laboratory test 09/18/2014 [facility] Blood Urea 16 mg/dL N 6- [address] [address] [phone] Creatinine 09/18/2014 [facility] Creatinine 0.70 N 0.51-0.[address] mg/[place] [address] [phone] Egfr Non- 85.6 N >60 Egfr 110.1 N >60 65 Ua Routine 08/05/2014 [facility] Ua Specific [place] 1.010 Ua PH 5 Ua Color georgette Ua Appera cloudy Ua WBC negative Ua Protein negative Ua Glucose negative Ua Ketones trace Ua Bilirubin negative Ua Urobilinogen normal Ua Nitrite negative Ua Occult Blood negative CBC Auto Diff 06/01/2014 [facility] White Blood 7.4 10^3/uL N 4.8-10.[address] [place] [address] [phone] Red Blood Count 4.09 10^6/uL N 4.0-5.4 Hemoglobin 13.1 g/dL N 12.0-16.0 Hematocrit 38 % N 35-47 Mean Corpuscular Volume 93 fL N 80-97 Mean Corpuscular Hemoglobin 32 pg High 27-31 Mean Corpuscular HGB Conc 34 g/dL N 31-36 Red Cell Distribution Width 13 % N 10.5-15 Platelet Count 430 10^3/uL N 150-450 Mean Platelet Volume 7 um3 Low 7.4-10.4 Abs Neutrophils 4.6 10^3/uL N 1.5-7.7 Abs Lymphocytes 1.8 10^3/uL N 1.0-4.8 Abs Monocytes 0.7 10^3/uL N 0-0.8 Abs Eosinophils 0.2 10^3/uL N 0-0.6 Abs Basophils 0.1 10^3/uL N 0-0.2 Abs Nucleated RBC 0 10^3/uL N Granulocyte % 62.9 % N 38-83 Lymphocyte % 24.6 % Low 25-47 Monocyte % 9.1 % High 1-9 Eosinophil % 2.5 % N 0-6 Basophil % 0.9 % N 0-2 Nucleated Red Blood Cells % 0 N Comp Metabolic Panel 06/01/2014 [facility] Sodium 141 mmol/L N 133-[address] [place] [address] [phone] Potassium 4.0 mmol/L N 3.5-5.0 66 Chloride 103 mmol/L N 101-111 Co2 Carbon Dioxide 34 mmol/L High 22-32 Anion Gap 4 mmol/L N 2-11 Glucose 104 mg/dL High 70-100 Blood Urea Nitrogen 9 mg/dL N 6-24 Creatinine 0.76 mg/dL N 0.51-0.95 BUN/Creatinine Ratio 11.8 N 8-20 Calcium 9.6 mg/dL N 8.6-10.3 Total Protein 7.0 g/dL N 6.4-8.9 Albumin 4.3 g/dL N 3.2-5.2 Globulin 2.7 g/dL N 2-4 Albumin/Globulin Ratio 1.6 N 1-3 Total Bilirubin 0.20 mg/dL N 0.2-1.0 Alkaline Phosphatase 75 U/L N 34-104 Alt 8 U/L N 7-52 Ast 13 U/L N 13-39 Egfr Non- 77.9 N >60 Egfr 100.2 N >60 67 Laboratory test 05/14/2014 [facility] Cytology RUN DATE: [address] Nongyn 05/15/ <[place] [address] NOTE> [phone] CBC No Diff 05/14/2014 [facility] White Blood 7.7 10^3/uL N 4.8-[address] Count .8 [place] [address] [phone] Red Blood Count 4.18 10^6/uL N 4.0-5.4 Hemoglobin 12.9 g/dL N 12.0-16.0 Hematocrit 39 % N 35-47 Mean Corpuscular Volume 94 fL N 80-97 Mean Corpuscular Hemoglobin 31 pg N 27-31 Mean Corpuscular HGB Conc 33 g/dL N 31-36 Red Cell Distribution Width 13 % N 10.5-15 Platelet Count 329 10^3/uL N 150-450 Mean Platelet Volume 7 um3 Low 7.4-10.4 Comp Metabolic Panel 05/14/2014 [facility] Sodium 139 mmol/L N 133-[address] [place] [address] [phone] Potassium 3.6 mmol/L N 3.5-5.0 69 Chloride 105 mmol/L N 101-111 Co2 Carbon Dioxide 27 mmol/L N 22-32 Anion Gap 7 mmol/L N 2-11 Glucose 99 mg/dL N 70-100 Blood Urea Nitrogen 19 mg/dL N 6-24 Creatinine 0.67 mg/dL N 0.51-0.95 BUN/Creatinine Ratio 28.4 High 8-20 Calcium 9.3 mg/dL N 8.6-10.3 Total Protein 6.8 g/dL N 6.4-8.9 Albumin 4.4 g/dL N 3.2-5.2 Globulin 2.4 g/dL N 2-4 Albumin/Globulin Ratio 1.8 N 1-3 Total Bilirubin 0.20 mg/dL N 0.2-1.0 Alkaline Phosphatase 83 U/L N 34-104 Alt 9 U/L N 7-52 Ast 18 U/L N 13-39 Egfr Non- 90.1 N >60 Egfr 115.9 N >60 70 Ua Routine 05/14/2014 [facility] Ua Specific [place] 1.005 Ua PH 5 Ua Color yellow Ua Appera clear Ua WBC neg Ua Protein tr Ua Glucose neg Ua Ketones neg Ua Bilirubin neg Ua Urobilinogen 0.2 Ua Nitrite neg Ua Occult Blood lg Ua Routine 05/04/2014 [facility] Ua Specific [place] 1.015 Ua PH 5 Ua Color yellow Ua Appera clear Ua WBC small Ua Protein negative Ua Glucose negative Ua Ketones negative Ua Bilirubin negative Ua Urobilinogen normal Ua Nitrite negatve Ua Occult Blood high Urine Culture And 05/04/2014 [facility] Urine Culture (SEE NOTE ) [address] [place] [address] [phone] Laboratory test 12/08/2013 [facility] Cytology RUN DATE: [address] [place] [address] NOTE> [phone] HPV High Risk 12/08/2013 [facility] Human See Comment N [address] [place] [address] Source [phone] HPV High Risk Type 16, PCR Negative N Negative HPV High Risk Type 18, PCR Negative N Negative HPV Other Risk types Negative N Negative 74 Laboratory 12/06/2013 [facility] TSH (Thyroid 0.58 N 0.34- 5.60 75, 76 test finding [address] Stimulating IU/[place] [address] Horm) [phone] Lipid Profile 12/06/2013 [facility] Triglycerides 65 mg/dL N 77 (Trig/Chol/HDL [address] ) [place] [address] [phone] Cholesterol 217 mg/dL N 78 HDL Cholesterol 57.7 mg/dL N 79 LDL Cholesterol 146 mg/dL N 80 Comp Metabolic Panel 12/06/2013 [facility] Sodium 139 mmol/L N 133-[address] [place] [address] [phone] Potassium 4.2 mmol/L N 3.7-5.6 Chloride 104 mmol/L N 101-111 Co2 Carbon Dioxide 31 mmol/L N 22-32 Anion Gap 4 mmol/L N 2-11 Glucose 90 mg/dL N 70-100 Blood Urea Nitrogen 14 mg/dL N 6-24 Creatinine 0.67 mg/dL N 0.51-0.95 BUN/Creatinine Ratio 20.9 High 8-20 Calcium 9.5 mg/dL N 8.6-10.3 Total Protein 6.6 g/dL N 6.4-8.9 Albumin 4.3 g/dL N 3.2-5.2 Globulin 2.3 g/dL N 2-4 Albumin/Globulin Ratio 1.9 N 1-3 Total Bilirubin 0.50 mg/dL N 0.2-1.0 Alkaline Phosphatase 81 U/L N 34-104 Alt 7 U/L N 7-52 Ast 15 U/L N 13-39 Egfr Non- 90.4 N >60 Egfr 116.3 N >60 81 Laboratory test 11/03/2013 [facility] Surgical RUN DATE: [address] Pathology 11/05/ <[place] [address] NOTE> [phone] Ua Routine 10/21/2013 [facility] Ua Specific 1.005 [place] Ua PH 6.5 Ua Color pale Ua Appera clear Ua WBC neg Ua Protein neg Ua Glucose neg Ua Ketones neg Ua Bilirubin neg Ua Urobilinogen neg Ua Nitrite neg Ua Occult Blood neg Laboratory test finding 09/18/2013 Magnesium 2.1 mg/dL N 1.9-2.7 Basic Metabolic Panel 09/18/2013 Sodium 138 mmol/L N 133-145 Potassium 4.3 mmol/L N 3.7-5.6 Chloride 104 mmol/L N 101-111 Co2 Carbon Dioxide 30 mmol/L N 22-32 Anion Gap 4 mmol/L N 2-11 Glucose 90 mg/dL N 70-100 Blood Urea Nitrogen 16 mg/dL N 6-24 Creatinine 0.66 mg/dL N 0.51-0.95 BUN/Creatinine Ratio 24.2 High 8-20 Calcium 9.5 mg/dL N 8.6-10.3 Egfr Non- 92.0 N >60 Egfr 118.3 N >60 83 Surgical 11/28/2012 [facility] S RUN DATE: [address] 11/29/ <[place] [address] NOTE> [phone] Laboratory test 09/26/2012 [facility] TSH (Thyroid 0.89 miu/mL 0.34- finding [address] Stimulating Horm) 5.60 [place], [place] [address] [phone] Comp Metabolic 09/26/2012 [facility] Sodium 140 mmol/L 133-[address] 45 [place] [address] [phone] Potassium 4.2 mmol/L 3.5-5.0 Chloride 102 mmol/L 101-111 Co2 Carbon Dioxide 31.0 mmol/L 22-32 Anion Gap 7.0 mmol/L 2-11 Glucose 92 mg/dL 70-100 Blood Urea Nitrogen 7 mg/dL 6-24 Creatinine 0.80 mg/dL 0.50-1.40 BUN/Creatinine Ratio 8.8 8-20 Calcium 9.9 mg/dL 8.1-9.9 Total Protein 6.6 g/dL 6.2-8.1 Albumin 4.0 g/dL 3.6-5.4 Globulin 2.6 g/dL 2-4 Albumin/Globulin Ratio 1.5 1-3 Total Bilirubin 0.6 mg/dL 0.4-1.5 Alkaline Phosphatase 85 U/L 30-110 Alt 9 U/L Low 14-54 Ast 19 U/L 12-42 Egfr Non- 73.9 >60 Egfr 95.1 >60 85 Lipid Profile 05/25/2012 [facility] Triglycerides 74 mg/dL 40 -200 (Trig/Chol/HDL) [address] [place] [address] [phone] Cholesterol 202 mg/dL High Less than 200 HDL Cholesterol 51 mg/dL 40-60 86 Cholesterol/HDL Ratio 4.0 AVERAGE 1-4.44 LDL Cholesterol 136.2 mg/dL High Less Than 100 87 Lipid Profile 01/19/2012 [facility] Triglyceride 57 mg/dL 40- 200 (Trig/Chol/HDL) [address] [place] [address] [phone] Cholesterol 251 mg/dL High Less Than 200 88 High Density Lipoprotein 61 mg/dL High 40-60 89 Cholesterol/HDL Ratio 4.11 AVERAGE 1-4.44 Low Density Lipoprotein 179 mg/dL High Less Than 100 90 Comp Metabolic Panel 01/19/2012 [facility] Sodium 138 mmol/L 135-145 [address] [place] [address] [phone] Potassium 4.8 mmol/L 3.5-5.0 Chloride 98 mmol/L Low 101-111 Co2 (Carbon Dioxide) 31.0 mmol/L 22-32 Anion Gap 9.0 mmol/L 2-11 91 Glucose 84 mg/dL 70-100 BUN 8 mg/dL 6-24 Creatinine 0.7 mg/dL 0.50-1.40 One Over Creatinine 1.42 BUN/Creatinine Ratio 11.4 8-20 Calcium 9.6 mg/dL 8.1-9.9 Total Protein 6.6 GM/DL 6.2-8.1 Albumin 4.2 GM/DL 3.6-5.4 Globulin 2.4 GM/DL 2-4 Albumin/Globulin Ratio 1.8 1-3 Bilirubin Total 0.8 mg/dL 0.4-1.5 92 Alkaline Phosphatase 89 U/L 30-110 Alt (SGPT) 11 U/L Low 14-54 Ast (Sgot) 17 U/L 12-42 eGFR Non- 86.6 > 60 eGFR 111.3 > 60 93 Laboratory test 01/19/2012 [facility] TSH 0.91 MIU/ML 0.34- 5.60 finding [address] [place] [address] [phone] 1 REFERENCE VALUE <4.0 (Negative) Test Performed by: [facility] [place] [address] 2 Negative serology. Celiac disease unlikely. However, approximately 10% of patients with celiac disease are seronegative. Also, patients who are already adhering to a gluten-free diet may be seronegative. If celiac disease is highly clinically suspected, consider HLA-DQ typing. Test Performed by: [facility] - [address] [address] 3 REFERENCE VALUE <1.0 (Negative) Test Performed by: [facility] [place] [address] 4 <1:80 (Negative) REFERENCE VALUE <1:80 (Negative) Test Performed by: [facility] [place] [address] 5 REFERENCE VALUE <1.0 (Negative) Test Performed by: [facility] [place] [address] 6 ADDITIONAL INFORMATION This test was developed and its performance characteristics determined by [facility] in a manner consistent with CLIA requirements. This test has not been cleared or approved by the U.S. Food and Drug Administration. 7 ADDITIONAL INFORMATION This test was developed and its performance characteristics determined by [facility] in a manner consistent with CLIA requirements. This test has not been cleared or approved by the U.S. Food and Drug Administration. Test Performed by: [facility] - [address] [address] 8 REFERENCE VALUE <1.0 (Negative) 9 REFERENCE VALUE <1.0 (Negative) Test Performed by: [address] [address] Test Performed by: [facility] [address] [place], [place] [address] Bayron Pandey M.D. Director of Laboratory 11 REFERENCE VALUE Not Applicable 12 RESULT: HLA-B27 antigen was not detected. ADDITIONAL INFORMATION Method: Flow Cytometry Performing Laboratory CLIA# [id number] Test Performed by: [facility] - [facility] [address] [place] [address] 13 RESULT: 01,03 REFERENCE VALUE Not Applicable 14 RESULT: 03:01,05:01 DQ Serologic Equivalent: 7,5 REFERENCE VALUE Not Applicable 15 The absence of HLA celiac permissive genes would make the presence of celiac disease unlikely. ADDITIONAL INFORMATION Method: Molecular typing of HLA antigens performed using reverse SSOP and/or SSP methods, reported as serological equivalents and low to medium resolution molecular values. Performing Laboratory CLIA# [id number] Test Performed by: [place] [address] 16 Please check labs this week 17 RESULT: No apparent monoclonal protein on serum electrophoresis. Test Performed by: [facility] [place] [address] 18 Normal values may vary with age, season and geographic area. Titers above upper limits may be indicative of infection, however only a two dilution rise in titer is required to be considered significant. ASO titer will usually rise above upper limits within one week of exposure, increase to peak levels at 3-5 weeks and return to baseline level at 6-12 twelve months. 19 Test Performed by: [place] [address] 20 Please check labs this week 21 Please check labs this week 22 Negative for cANCA and pANCA patterns by immunofluorescence. ADDITIONAL INFORMATION This test was developed and its performance characteristics determined by [facility] in a manner consistent with CLIA requirements. This test has not been cleared or approved by the U.S. Food and Drug Administration. Test Performed by: [facility] [employer] [address] [place] [address] 23 Normal Range 180 to 914 Indeterminate Range 145 to 180 Deficient Range <145 24 Please check labs this week REFERENCE VALUE <20.0 (Negative) Test Performed by: [facility] - [address] [address] 26 <1:80 (Negative) REFERENCE VALUE <1:80 (Negative) Test Performed by: [facility] - [address] [address] 27 No evidence of antibodies to B. burgdorferi detected. False negative results may occur in recently infected patients (<=2 weeks) due to low or undetectable antibody levels to B. burgdorferi. If recent exposure is suspected, a second sample should be collected and tested in 2-4 weeks. Test Performed by: [facility] - [address] [address] 28 ADDITIONAL INFORMATION This test was developed and its performance characteristics determined by [facility] in a manner consistent with CLIA requirements. This test has not been cleared or approved by the U.S. Food and Drug Administration. 29 ADDITIONAL INFORMATION This test was developed and its performance characteristics determined by [facility] in a manner consistent with CLIA requirements. This test has not been cleared or approved by the U.S. Food and Drug Administration. 30 ADDITIONAL INFORMATION This test was developed and its performance characteristics determined by [facility] in a manner consistent with CLIA requirements. This test has not been cleared or approved by the U.S. Food and Drug Administration. Test Performed by: [address] [address] 31 Desirable: <150 Borderline High: 150-199 High: 200-499 Very High: >500 32 Desirable: <200 Borderline High: 200-239 High: >239 33 Low: <40 Desirable: 40-60 High: >60 34 Desirable: <100 Near Optimal: 100-129 Borderline High: 130-159 High: 160-189 Very High: >189 35 Because ethnic data is not always readily available, this report includes an eGFR for both -Americans and non- Americans. The National Kidney Disease Education Program (NKDEP) does not endorse the use of the MDRD equation for patients that are not between the ages of 18 and 70, are , have extremes of body size, muscle mass, or nutritional status, or are non- or non-. According to the National Kidney Foundation, irrespective of diagnosis, the stage of the disease is based on the level of kidney function: Stage Description GFR(mL/min/1.73 m(2)) 1 Kidney damage with normal or decreased GFR 90 2 Kidney damage with mild decrease in GFR 60-89 3 Moderate decrease in GFR 30-59 4 Severe decrease in GFR 15-29 5 Kidney failure <15 (or dialysis) 36 Because ethnic data is not always readily available, this report includes an eGFR for both -Americans and non- Americans. The National Kidney Disease Education Program (NKDEP) does not endorse the use of the MDRD equation for patients that are not between the ages of 18 and 70, are , have extremes of body size, muscle mass, or nutritional status, or are non- or non-. According to the National Kidney Foundation, irrespective of diagnosis, the stage of the disease is based on the level of kidney function: Stage Description GFR(mL/min/1.73 m(2)) 1 Kidney damage with normal or decreased GFR 90 2 Kidney damage with mild decrease in GFR 60-89 3 Moderate decrease in GFR 30-59 4 Severe decrease in GFR 15-29 5 Kidney failure <15 (or dialysis) 37 Desirable <150 Borderline high 150-199 High 200-499 Very High >500 38 Desirable <200 Borderline high 200-239 High >239 39 Low <40 Desirable: 40-60 High: >60 40 Desirable: <100 mg/dL Near Optimal: 100-129 mg/dL Borderline High: 130-159 mg/dL High: 160-189 mg/dL Very High: >189 mg/dL 41 FASTING 10 HOUR 42 SEE RESULT BELOW Name: KAYLACARY M : [address]: Florence Skinner NP Acct: [id number] Unit: [id number] AGE: 62 Location: [facility] Re03/07/17 SEX: F Status: REG REF SPEC: [id number] ART: 03/07/17-[address] [facility] [address]: Florence Skinner NP REQ: [id number] RECD: 03/07/17 STATUS: SOUT _ ORDERED: TP IMAGE ANAL, HPV/Thin Prep, HPV 16/18 GENE COMMENTS: [id number] FINAL DIAGNOSIS Negative for Intraepithelial lesion or Malignancy A. Ectocervical/Endocervical Specimen Adequacy: Satisfactory of evaluation Transformation zone component identified Patient Information: HPV: High risk HPV RNA testing regardless of pap results. HPV 16/18 Genotype Reflex Actual Specimen Date: 03/07/17 LMP If Unknown: age 50 Spec Date if unknown: 05/2014 ?: N Post Menopausal?: Y Hysterectomy?: N Previous Abnormal Pap Smears?:N Date Time Test Result Flag (u) Normal Range 03/07/17 1431 HPV RNA RFLX GE Negative Negative The high-risk HPV types detected by the assay include: 16, 18, 31, 33, 35, 39, 45, 51, 52, 56, 58, 59, 66, and 68. Signed (signature on file) YVONNE Valdivia(ASCP) 03/08 1401 This Pap test was evaluated with the assistance of the Otelicp Test Imaging System. Due to cytologic findings at the application development director microscope, comprehensive manual rescreening by a Financial Processing Clerk may be required. The Pap Smear is a screening test designed to aid in the detection of premalignant and malignant conditions of the uterine cervix. It is not a diagnostic procedure and should not be used as the sole means of detecting cervical cancer. Both false- positive and false- negative reports do occur. Depending on your risk status, a Pap smear should be obtained and evaluated every 1-3 years. END OF REPORT * ML=Testing performed at Main Lab DEPARTMENT OF PATHOLOGY, [address] [place] [address] RUN DATE: 03/08/17 [facility] LIVE PAGE 1 Patient: CARY JOHNS [id number] (Continued) Bayron Pandey M.D. Director [facility] # [id number] 43 The high-risk HPV types detected by the assay include: 16, 18, 31, 33, 35, 39, 45, 51, 52, 56, 58, 59, 66, and 68. 44 Test Performed by: [address] [address] Supervisor Underwriting Clerks: Luke Michelle II, M.D., Ph.D. 45 REFERENCE VALUE <=1.0 (Negative) 46 REFERENCE VALUE <20.0 (Negative) 47 Tests for antibodies to dsDNA and KARLI antigens are not performed automatically unless the ASHLEY result is > or= 3.0 U. Studies performed at [facility] indicate that positive ASHLEY results <3.0 U are rarely accompanied by positive second order tests. Test Performed by: [facility] [place] [address] Supervisor Underwriting Clerks: Luke Michelle II, M.D., Ph.D. 48 Not diagnostic. Supplemental testing ordered by reflex. Test Performed by: [place] [address] Supervisor Underwriting Clerks: Luke Michelle II, M.D., Ph.D. 49 No bands detected 50 Specific serologic response to B. burgdorferi infection is not detected, but cannot rule out early infection during which low or undetectable antibody levels to B. burgdorferi may be present. If clinically indicated, a new serum specimen should be submitted in 7-14 days. ADDITIONAL INFORMATION CDC criteria require >=5 bands for IgG or >=2 bands for IgM for the Immunoblot to be considered positive. Bands (e.g.,p41) may be detected in patients without Lyme disease, and patterns not meeting the CDC criteria should be interpreted with caution. Immunoblot should be ordered only on specimens that are positive or equivocal by a FDA-licensed Lyme disease antibody screening test (e.g., EIA). Test Performed by: [place] [address] Supervisor Underwriting Clerks: Luke Michelle II, M.D., Ph.D. 51 Because ethnic data is not always readily available, this report includes an eGFR for both -Americans and non- Americans. The National Kidney Disease Education Program (NKDEP) does not endorse the use of the MDRD equation for patients that are not between the ages of 18 and 70, are , have extremes of body size, muscle mass, or nutritional status, or are non- or non-. According to the National Kidney Foundation, irrespective of diagnosis, the stage of the disease is based on the level of kidney function: Stage Description GFR(mL/min/1.73 m(2)) 1 Kidney damage with normal or decreased GFR 90 2 Kidney damage with mild decrease in GFR 60-89 3 Moderate decrease in GFR 30-59 4 Severe decrease in GFR 15-29 5 Kidney failure <15 (or dialysis) 52 Desirable <150 Borderline high 150-199 High 200-499 Very High >500 53 Desirable <200 Borderline high 200-239 High >239 54 Low <40 Desirable: 40-60 High: >60 55 Desirable: <100 mg/dL Near Optimal: 100-129 mg/dL Borderline High: 130-159 mg/dL High: 160-189 mg/dL Very High: >189 mg/dL 56 FASTING 10 HOUR 57 Because ethnic data is not always readily available, this report includes an eGFR for both -Americans and non- Americans. The National Kidney Disease Education Program (NKDEP) does not endorse the use of the MDRD equation for patients that are not between the ages of 18 and 70, are , have extremes of body size, muscle mass, or nutritional status, or are non- or non-. According to the National Kidney Foundation, irrespective of diagnosis, the stage of the disease is based on the level of kidney function: Stage Description GFR(mL/min/1.73 m(2)) 1 Kidney damage with normal or decreased GFR 90 2 Kidney damage with mild decrease in GFR 60-89 3 Moderate decrease in GFR 30-59 4 Severe decrease in GFR 15-29 5 Kidney failure <15 (or dialysis) 58 Because ethnic data is not always readily available, this report includes an eGFR for both -Americans and non- Americans. The National Kidney Disease Education Program (NKDEP) does not endorse the use of the MDRD equation for patients that are not between the ages of 18 and 70, are , have extremes of body size, muscle mass, or nutritional status, or are non- or non-. According to the National Kidney Foundation, irrespective of diagnosis, the stage of the disease is based on the level of kidney function: Stage Description GFR(mL/min/1.73 m(2)) 1 Kidney damage with normal or decreased GFR 90 2 Kidney damage with mild decrease in GFR 60-89 3 Moderate decrease in GFR 30-59 4 Severe decrease in GFR 15-29 5 Kidney failure <15 (or dialysis) 59 Desirable <150 Borderline high 150-199 High 200-499 Very High >500 60 Desirable <200 Borderline high 200-239 High >239 61 Low <40 Desirable: 40-60 High: >60 62 Desirable: <100 mg/dL Near Optimal: 100-129 mg/dL Borderline High: 130-159 mg/dL High: 160-189 mg/dL Very High: >189 mg/dL 63 The high-risk HPV types detected by the assay include: 16, 18, 31, 33, 35, 39, 45, 51, 52, 56, 58, 59, 66, and 68. 64 Because ethnic data is not always readily available, this report includes an eGFR for both -Americans and non- Americans. The National Kidney Disease Education Program (NKDEP) does not endorse the use of the MDRD equation for patients that are not between the ages of 18 and 70, are , have extremes of body size, muscle mass, or nutritional status, or are non- or non-. According to the National Kidney Foundation, irrespective of diagnosis, the stage of the disease is based on the level of kidney function: Stage Description GFR(mL/min/1.73 m(2)) 1 Kidney damage with normal or decreased GFR 90 2 Kidney damage with mild decrease in GFR 60-89 3 Moderate decrease in GFR 30-59 4 Severe decrease in GFR 15-29 5 Kidney failure <15 (or dialysis) 65 Because ethnic data is not always readily available, this report includes an eGFR for both -Americans and non- Americans. The National Kidney Disease Education Program (NKDEP) does not endorse the use of the MDRD equation for patients that are not between the ages of 18 and 70, are , have extremes of body size, muscle mass, or nutritional status, or are non- or non-. According to the National Kidney Foundation, irrespective of diagnosis, the stage of the disease is based on the level of kidney function: Stage Description GFR(mL/min/1.73 m(2)) 1 Kidney damage with normal or decreased GFR 90 2 Kidney damage with mild decrease in GFR 60-89 3 Moderate decrease in GFR 30-59 4 Severe decrease in GFR 15-29 5 Kidney failure <15 (or dialysis) 66 Potassium reference range changed effective 05/03/14 67 Because ethnic data is not always readily available, this report includes an eGFR for both -Americans and non- Americans. The National Kidney Disease Education Program (NKDEP) does not endorse the use of the MDRD equation for patients that are not between the ages of 18 and 70, are , have extremes of body size, muscle mass, or nutritional status, or are non- or non-. According to the National Kidney Foundation, irrespective of diagnosis, the stage of the disease is based on the level of kidney function: Stage Description GFR(mL/min/1.73 m(2)) 1 Kidney damage with normal or decreased GFR 90 2 Kidney damage with mild decrease in GFR 60-89 3 Moderate decrease in GFR 30-59 4 Severe decrease in GFR 15-29 5 Kidney failure <15 (or dialysis) 68 RUN DATE: 05/15/14 [facility] LAB LIVE PAGE 1 RUN TIME: [address] [place] [address] Specimen Inquiry Name: CARY JOHNS : [address]: Leonid Garvey NP Acct: [id number] Unit: [id number] AGE: 59 Location: [facility] Re05/14/14 SEX: F Status: REG REF SPEC: [id number] ART: 05/14/14-[address]: Leonid Garvey NP REQ: [id number] RECD: 05/14/14 STATUS: SOUT _ ORDERED: THIN PREP NON G Urine, void: Negative for malignant cells. URINE VOID CLINICAL HISTORY Hematuria GROSS DESCRIPTION 10 mls of clear pale yellow voided urine. Signed (signature on file) Alanna Lee MD 1642 END OF REPORT * ML=Testing performed at Main Lab DEPARTMENT OF PATHOLOGY, [facility] [employer] [place], [place] [address] Bayron Pandey M.D. Director [facility] # [id number] 69 Potassium reference range changed effective 05/03/14 70 Because ethnic data is not always readily available, this report includes an eGFR for both -Americans and non- Americans. The National Kidney Disease Education Program (NKDEP) does not endorse the use of the MDRD equation for patients that are not between the ages of 18 and 70, are , have extremes of body size, muscle mass, or nutritional status, or are non- or non-. According to the National Kidney Foundation, irrespective of diagnosis, the stage of the disease is based on the level of kidney function: Stage Description GFR(mL/min/1.73 m(2)) 1 Kidney damage with normal or decreased GFR 90 2 Kidney damage with mild decrease in GFR 60-89 3 Moderate decrease in GFR 30-59 4 Severe decrease in GFR 15-29 5 Kidney failure <15 (or dialysis) 71 RUN DATE: 05/06/14 [facility] LIVE PAGE 1 RUN TIME: 927 [facility] [place], [place] [address] Specimen Inquiry Name: CARY JOHNS : [address]: Florence Skinner NP Acct: [id number] Unit: [id number] AGE: 59 Location: [facility] Re05/04/14 SEX: F Status: REG REF SPEC: [id number] ART: 05/04/14-[address]: Florence Skinner NP REQ: [id number] RECD: 05/04/14 STATUS: COMP _ SOURCE: URINE SPDESC: ORDERED: Urine Culture QUERIES: Medent Number [id number] Procedure Result Verified Site Urine Culture Final 05/06/14- 927 ML Organism 1 NORMAL STEPHANY [place] Count 1-10,000 (Few) CFU/ML END OF REPORT * ML=Testing performed at Main Lab DEPARTMENT OF PATHOLOGY, [facility] [employer] [place], [place] [address] Bayron Pandey M.D. Director [place] # [id number] RUN DATE: 12/09/13 [facility] LIVE PAGE 1 RUN TIME: 1034 [facility] [place], [place] [address] Specimen Inquiry Name: CARY JOHNS : [address]: Florence Skinner NP Acct: [id number] Unit: [id number] AGE: 58 Location: [facility] Re12/08/13 SEX: F Status: REG REF SPEC: [id number] ART: 12/08/13-[address]: Florence Skinner NP REQ: [id number] RECD: 12/08/13-4381 STATUS: SOUT _ ORDERED: IMAGE ANALYSIS, HPV/Thin Prep FINAL DIAGNOSIS Negative for Intraepithelial lesion or Malignancy COMMENTS: Specimen sent to [facility] in [place], [place] on 12/09/13 by [id number] at 1018. Results will be reported separately. A. Ectocervical/Endocervical Specimen Adequacy: Satisfactory of evaluation Transformation zone component cannot be definitely identified due to presence of atrophy or other hormonal changes Patient Information: HPV: High risk HPV DNA testing regardless of pap results. Actual Specimen Date: 12/08/13 LMP If Unknown: age 50 IUD: N Lesion, grossly demonstrate: N ?: N Post Menopausal?: Y Hysterectomy?: N Previous Abnormal Pap Smears?:Y If Yes, enter Diagnosis: years ago at age 19,unknown dx. Signed (signature on file) YVONNE Murcia (ASCP) 12/09/13 1034 This Pap test was evaluated with the assistance of the XD NutritionPrep Test Imaging System. Due to cytologic findings at the application development director microscope, comprehensive manual rescreening by a Financial Processing Clerk may be required. The Pap Smear is a screening test designed to aid in the detection of premalignant and malignant conditions of the uterine cervix. It is not a diagnostic procedure and should not be used as the sole means of detecting cervical cancer. Both false- positive and false- negative reports do occur. Depending on your risk status, a Pap smear shoudl be obtained and evaluated every 1-3 years. END OF REPORT * ML=Testing performed at Main Lab DEPARTMENT OF PATHOLOGY, [address] [place] [address] Bayron Pandey M.D. Director [facility] # [id number] RUN DATE: 12/09/13 [facility] LIVE PAGE 1 RUN TIME: 1034 [address] [place], [place] [address] Specimen Inquiry Patient: CARY JOHNS [id number] (Continued) 73 RESULT: Ectocervical/Endocervical 74 The following Other High Risk HPV types were not detected: 31, 33, 35, 39, 45, 51, 52, 56, 58, 59, 66, and 68 Test Performed by: [address] [address] Supervisor Underwriting Clerks: Keith Espino III, M.D. 75 PT IS FASTING 76 PT IS FASTING 77 Desirable <150 Borderline high 150-199 High 200-499 Very High >500 78 Desirable <200 Borderline high 200-239 High >239 79 Low <40 Desirable: 40-60 High: >60 80 Desirable <100 Near Optimal 100-129 Borderline high 130-159 High 160-189 Very High >189 81 Because ethnic data is not always readily available, this report includes an eGFR for both -Americans and non- Americans. The National Kidney Disease Education Program (NKDEP) does not endorse the use of the MDRD equation for patients that are not between the ages of 18 and 70, are , have extremes of body size, muscle mass, or nutritional status, or are non- or non-. According to the National Kidney Foundation, irrespective of diagnosis, the stage of the disease is based on the level of kidney function: Stage Description GFR(mL/min/1.73 m(2)) 1 Kidney damage with normal or decreased GFR 90 2 Kidney damage with mild decrease in GFR 60-89 3 Moderate decrease in GFR 30-59 4 Severe decrease in GFR 15-29 5 Kidney failure <15 (or dialysis) 82 RUN DATE: 11/05/13 [facility] LIVE PAGE 1 RUN TIME: [address] [place] [address] Specimen Inquiry Name: CARY JOHNS : [address]: Florence Skinner NP Acct: [id number] Unit: [id number] AGE: 58 Location: [facility] Re11/03/13 SEX: F Status: REG REF SPEC: [id number] ART: 11/03/13-[address] [facility] [address]: Florence Skinner NP REQ: [id number] RECD: 11/03/130248 STATUS: SOUT _ ORDERED: LEVEL IV FINAL DIAGNOSIS Uterus, endometrium, curettage: A. Benign strips of atrophic endometrial mucosa. B. No evidence of hyperplasia or neoplasia. CLINICAL HISTORY No history given. GROSS DESCRIPTION The specimen is received in formalin labeled Cary Johns, No Source Identified with an accompanying requisition labeled Endometrial Biopsy and consists of a 1.2 x 0.5 x 0.3 cm. aggregate of predominantly blood tinged mucus admixed with scant brambila, possible soft tissue fragments. The specimen is submitted entirely in one cassette. Signed (signature on file) Alanna Lee MD 01/12 1512 END OF REPORT * ML=Testing performed at Main Lab DEPARTMENT OF PATHOLOGY, [facility] [employer] [place] [id number] Bayron Pandey M.D. Director [facility] # [id number] 83 Because ethnic data is not always readily available, this report includes an eGFR for both -Americans and non- Americans. The National Kidney Disease Education Program (NKDEP) does not endorse the use of the MDRD equation for patients that are not between the ages of 18 and 70, are , have extremes of body size, muscle mass, or nutritional status, or are non- or non-. According to the National Kidney Foundation, irrespective of diagnosis, the stage of the disease is based on the level of kidney function: Stage Description GFR(mL/min/1.73 m(2)) 1 Kidney damage with normal or decreased GFR 90 2 Kidney damage with mild decrease in GFR 60-89 3 Moderate decrease in GFR 30-59 4 Severe decrease in GFR 15-29 5 Kidney failure <15 (or dialysis) 84 RUN DATE: 11/29/12 [facility] LIVE PAGE 1 RUN TIME: 1432 [address] [facility] [place], [place] [address] Specimen Inquiry Name: CARY JOHNS : [address]: Rhona Street MD Acct: [id number] Unit: [id number] AGE: 57 Location: [facility] Re11/28/12 SEX: F Status: REG REF SPEC: [id number] ART: 11/28/12- SUBM DR: Jb Silverman MD REQ: [id number] RECD: 11/28/12 STATUS: TEQUILA SINGER DR: Rhona Street MD _ ORDERED: LEVEL IV FINAL DIAGNOSIS Breast, left, core biopsies: A. Non-proliferative breast tissue with fibroadenomatous hyperplasia (see comment). B. No evidence of malignancy identified. COMMENTS: These cores demonstrate a predominantly solid fibrous nodular stroma with focal areas of glandular changes compatible with fibroadenomatous hyperplasia. This may represent an area of nodular stromal fibrosis or possibly a senescent fibroadenoma. Correlation with imaging findings is suggested. CLINICAL HISTORY Intermediate (ultrasound) suspicious solid mass, differential diagnosis: fibroadenoma, fibrocystic change, ductal carcinoma in situ, carcinoma PRE-OPERATIVE DIAGNOSIS Left breast pain. GROSS DESCRIPTION The specimen is received in formalin labeled Cary Dodson Kayla, Left Breast Core x2, and consists of two brambila-mai core fragments measuring 1.9 cm. by up to 0.5 x 0.2 cm. in aggregate. Submitted entirely, one cassette. Signed (signature on file) Bayron Pandey MD 5122 END OF REPORT * ML=Testing performed at Main Lab DEPARTMENT OF PATHOLOGY, [address] [place] [address] Bayron Pandey M.D. Director [facility] Permit #[id number] 85 Because ethnic data is not always readily available, this report includes an eGFR for both -Americans and non- Americans. The National Kidney Disease Education Program (NKDEP) does not endorse the use of the MDRD equation for patients that are not between the ages of 18 and 70, are , have extremes of body size, muscle mass, or nutritional status, or are non- or non-. According to the National Kidney Foundation, irrespective of diagnosis, the stage of the disease is based on the level of kidney function: Stage Description GFR(mL/min/1.73 m(2)) 1 Kidney damage with normal or decreased GFR 90 2 Kidney damage with mild decrease in GFR 60-89 3 Moderate decrease in GFR 30-59 4 Severe decrease in GFR 15-29 5 Kidney failure <15 (or dialysis) 86 HDL Interpretation: Undesirable: High Risk: Less than 40 MG/DL Desirable: Low Risk: Greater than 60 MG/DL 87 LDL Interpretation: Low Risk Optimal Level: LDL Less than 100 MG/DL Near or Above Optimal: LDL 100-129 MG/DL Borderline High Risk: LDL 130-159 MG/DL High Risk: LDL 160-189 MG/DL Very High Risk: LDL Greater than 189 MG/DL 88 CHOLESTEROL INTERPRETATION: Desirable: Less than 200 MG/DL Borderline-High Risk: 200-239 MG/DL High-Risk: 240 MG/DL and over 89 HDL INTERPRETATION: Undesirable: High Risk: Less than 40 MG/DL Desirable: Low Risk: Greater than 60 MG/DL 90 LDL INTERPRETATION: Low Risk Optimal Level: LDL Less than 100 MG/DL Near or Above Optimal: LDL 100-129 MG/DL Borderline High Risk: LDL 130-159 MG/DL High Risk: LDL 160-189 MG/DL Very High Risk: LDL Greater than 189 MG/DL 91 Anion gap measurement may be of limited value in the presence of any alkalosis, especially in a combined acid base disorder. . 92 A metabolite of Naproxen, O-desmethylnaproxen, has been shown to interfere with the Jendrassik-Bertram method for measuring total bilirubin. Samples from patients who have taken Naproxen have shown spurious elevation in total bilirubin levels. 93 Because ethnic data is not always readily available, this report includes an eGFR for both -Americans and non- Americans. The National Kidney Disease Education Program (NKDEP) does not endorse the use of the MDRD equation for patients that are not between the ages of 18 and 70, are , have extremes of body size, muscle mass, or nutritional status, or are non- or non-. According to the National Kidney Foundation, irrespective of diagnosis, the stage of the disease is based on the level of kidney function: Stage Description GFR(mL/min/1.73 m(2)) 1 Kidney damage with normal or decreased GFR 90 2 Kidney damage with mild decrease in GFR 60-89 3 Moderate decrease in GFR 30-59 4 Severe decrease in GFR 15-29 5 Kidney failure <15 (or dialysis) Procedures Date Code Description Status 09/19/2018 02128 ECHO Transthoracic, Real-Time 2D With Doppler And Completed Color Flow 09/19/2018 44454 ECHO Transthoracic, Real-Time 2D With Doppler And Completed Color Flow 08/02/2018 92015 Polysomnography Sleep Staging 4+ Parameters Completed 07/18/2018 25037 Bronchospasm Provocation Evalu Completed 07/11/2018 12726 Diffusing Capacity Completed 07/11/2018 43022 Plethysmography Determination Lung Volumes & Per Completed Airway Resist 07/11/2018 03648 Pulmonary Function><Bronchodil Completed 07/04/2018 43974 Sleep Study Unattended,HRT Rate,Oxygen Sat,Resp Completed Effort/Airflow 04/08/2018 [id number] Mammogram Completed 04/05/2017 [id number] Mammogram Completed 01/11/2016 [id number] Mammogram Completed 11/24/2015 [id number] Colonoscopy Completed 04/22/2015 Inject/Drain Joint/Bursa Small W/O US Completed 05/21/2014 Inject/Drain Joint/Bursa Small W/O US Completed 12/31/2013 [id number] Mammogram Completed 11/03/2013 02196 Endometrial Sampling W Or W/O Endocervical BX W Or W/O Completed Cerv Dilat 07/24/2013 Inject/Drain Joint/Bursa Small W/O US Completed 01/09/2013 16479 Rad Exam; Fingers Completed 01/09/2013 08175 Rad Exam; Fingers Completed 01/09/2013 Inject/Drain Joint/Bursa Small W/O US Completed 11/28/2012 [id number] Mammogram Completed 11/19/2012 [id number] Mammogram Completed 04/08/2012 37263 Destruction Of Benign Lesions Any Method 1-14 lesions Completed 04/01/2012 Inject/Drain Joint/Bursa Small W/O US Completed 04/25/2011 [id number] Bone Mineral Density Test Completed 04/25/2011 [id number] Mammogram Completed 12/01/2009 20931 EKG Tracing & Interpretation Completed 04/07/2009 [id number] Mammogram Completed Encounters Type Date Location Provider Dx Diagnosis Office Visit 10/03/2018 Rheumatology Joseph Beckham, M19.049 Primary 1:40p Services Of Gwen Ferrari osteoarthritis, unspecified hand Office Visit 09/17/2018 Pulmonology And Denice Quintana, J45.909 Unspecified asthma, 1:45p Sleep [facility] Of MD victor hugo Hidalgo G47.33 Obstructive sleep apnea (adult) (pediatric) R00.2 Palpitations Office Visit 09/03/2018 Rheumatology Joseph 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 R20.8 Other disturbances of skin sensation M19.049 Primary osteoarthritis, unspecified hand R70.0 Elevated erythrocyte sedimentation rate R68.2 Dry mouth, unspecified L30.9 Dermatitis, unspecified Office Visit 07/29/2018 11:26a Gwen Ruiz S83.512D Sprain of Health MD Philipp anterior cruciate ligament of left knee, subs M76.32 Iliotibial band syndrome, left leg Z04.2 Encounter for exam and observation following work accident Office Visit 07/10/2018 11:22a [facility] Occupational Joseph S83.512D Sprain of Health Philipp, anterior cruciate ligament of left knee, subs M76.32 Iliotibial band syndrome, left leg Z04.2 Encounter for exam and observation following work accident Office Visit 06/20/2018 1:00p Pulmonology And Sleep Denice Quintana MD R05 Cough [facility] J45.909 Unspecified asthma, uncomplicated R06.83 Snoring Office Visit 06/19/2018 11:01a [facility] Occupational Joseph S83.512D Sprain of Health Philipp, anterior cruciate ligament of left knee, subs Z04.2 Encounter for exam and observation following work accident Office Visit 06/07/2018 1:40p [facility] Internal Medicine - Florence Skinner, N.P. R05 Cough [place] M25.50 Pain in unspecified joint Office Visit 04/16/2018 [place] [facility] Torey Salmeron MD E04.2 Nontoxic 1:20p Endocrinology of multinodular [facility] goiter Office Visit 04/12/2018 [facility] Internal Rhona J06.9 Acute upper 2:40p Leonel Street M.D. respiratory infection, unspecified R07.0 Pain in throat Office Visit 02/27/2018 3:00p [facility] Internal Florence Skinner, Z00.01 Encounter for Medicine N.P. general adult medical exam w abnormal findings Z12.31 Encntr screen mammogram for malignant neoplasm of breast E04.2 Nontoxic multinodular goiter F41.9 Anxiety disorder, unspecified K58.1 Irritable bowel syndrome with constipation E78.00 Pure hypercholesterolemia, unspecified Office Visit 09/25/2017 [facility] Rhona M54.9 Dorsalgia, 10:00a [address] M.D. unspecified Office Visit 06/20/2017 [facility] Leonid Garvey NP Z01.818 Encounter for other 2:40p Medicine preprocedural examination Office Visit 06/08/2017 [facility] Leonid Garvey NP Z01.818 Encounter for other 9:00a Medicine preprocedural examination H26.9 Unspecified cataract Office Visit 03/07/2017 1:40p [facility] Florence Skinner, Z00.00 Encntr for Medicine N.P. general adult medical exam w/o abnormal findings Z12.31 Encntr screen mammogram for malignant neoplasm of breast E78.00 Pure hypercholesterolemia, unspecified G43.909 Migraine, unsp, not intractable, without status migrainosus F41.9 Anxiety disorder, unspecified K58.9 Irritable bowel syndrome without diarrhea E04.2 Nontoxic multinodular goiter Z01.419 Encntr for obstetrician and gynaecologist exam (general) (routine) w/o abn findings Z23 Encounter for immunization Office Visit 08/30/2016 [facility]opedic Cindy M79.641 Pain in right 3:15p [facility] hand C.M.A. Office Visit 08/25/2016 [facility] Rhona M19.041 Primary 3:40p Medicine [address] osteoarthritis, right hand Office Visit 07/06/2016 [facility] Rhona B00.1 Herpesviral 7:40a Leonel Street M.D. vesicular dermatitis Office Visit 06/15/2016 [facility] Leonid Garvey NP L60.0 Ingrowing nail 3:20p Medicine Office Visit 05/04/2016 [facility] Leonid Garvey NP R51 Headache 2:00p Medicine H81.10 Benign paroxysmal vertigo, unspecified ear Office Visit 04/24/2016 2:00p [facility] Leonid Garvey NP R21 Rash and other Medicine nonspecific skin eruption Office Visit 04/17/2016 10:40a [facility] Leonid Garvey NP R21 Rash and other Medicine nonspecific skin eruption Office Visit 12/13/2015 3:20p [facility] Florence Skinner, Z00.01 Encounter for Medicine N.P. general adult medical exam w abnormal findings Z12.31 Encntr screen mammogram for malignant neoplasm of breast G43.909 Migraine, unsp, not intractable, without status migrainosus F41.9 Anxiety disorder, unspecified K58.9 Irritable bowel syndrome without diarrhea E04.2 Nontoxic multinodular goiter J30.9 Allergic rhinitis, unspecified E78.0 Pure hypercholesterolemia M79.672 Pain in left foot Office Visit 08/18/2015 4:00p [facility] Florence Skinner, R10.30 Lower abdominal Medicine N.P. pain, unspecified R10.32 Left lower quadrant pain Office Visit 08/10/2015 3:00p [facility] Florence Susanne, R10.30 Lower abdominal Medicine N.P. pain, unspecified Office Visit 05/13/2015 2:20p [facility] Rhona J01.90 Acute sinusitis, Medicine [address] unspecified Office Visit 12/22/2014 1:20p [facility] Florence Susanne, 782.0 Skin Sensation Medicine N.P. Disturbance 724.5 Backache Unspec 720.2 Sacroiliitis Not Elsewhere Classified 724.8 Back Symptoms Other Office Visit 12/09/2014 3:20p [facility] Florence Varn, V70.0 Examination Medicine N.P. General Medical Routine AT Health Care Facility V76.10 Screening For Malignant Neoplasm Breast 240.9 Goiter Unspec 300.00 Anxiety State Unspec 346.90 Migraine Unspec W/O Intractable W/O Status Migrainosus 789.03 Pain Abdominal Right Lower Quadrant 311 Depressive Disorder Not Elsewhere Spec 782.0 Skin Sensation Disturbance Office Visit 08/18/2014 1:40p [facility] Florence Skinner, 789.03 Pain Abdominal Medicine N.P. Right Lower Quadrant 789.63 Tenderness Abdominal Right Lower Quadrant 564.1 Irritable Bowel Syndrome Office Visit 08/05/2014 2:20p [facility] Florence Skinner, 789.09 Pain Abdominal Medicine N.P. Other Spec Site 789.69 Tenderness Abdominal Other Spec Site 564.1 Irritable Bowel Syndrome 789.04 Pain Abdominal Left Lower Quadrant 789.03 Pain Abdominal Right Lower Quadrant Office Visit 06/16/2014 2:20p [facility] Florence Skinner, 564.1 Irritable Bowel Medicine N.P. 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 Infection Site Not Spec Office Visit 12/08/2013 3:20p [facility] Florence Skinner, V70.0 Examination Medicine N.P. 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 Unspec Site 381.81 Eustachian Tube Dysfunction Office Visit 09/18/2013 10:10a [facility] Myriam Jean-Baptiste, 729.5 Pain In Limb Medicine MAlpesh 729.82 Cramp Of Limb Office Visit 01/09/2013 3:00p Orthopedic Cindy 716.84 Arthropathy Other [facility] [facility] Spec Hand C.M.A. Office Visit 12/11/2012 2:00p [facility] Katarzyna Hernandez, 995.3 Allergy Unspec Medicine Vega, FACP 611.71 Mastodynia 078.10 Viral Warts Unspec Office Visit 11/07/2012 2:40p [facility] Katarzyna Hernandez, 710.2 Sicca Syndrome Medicine Veag, FACP 611.71 Mastodynia 715.14 Osteoarthrosis Localized Prim Hand Office Visit 09/26/2012 [facility] Katarzyna Hernandez, 710.2 Sicca Syndrome 2:40p Medicine Vega, FACP Office Visit 05/13/2012 Orthopedic Bridget 715.14 Osteoarthrosis 9:30a Services Of [facility] Localized Prim Hand C.M.AGraciela Ferrari Office Visit 04/08/2012 [facility] Miracle Skinner, 719.44 Pain Joint Hand 9:40a Medicine N.P. 300.00 Anxiety State Unspec 354.0 Carpal Tunnel Syndrome 078.10 Viral Warts Unspec Office 04/01/2012 Orthopedic Bridget 715.14 Osteoarthrosis Visit 10:15a [facility] Bonilla Localized Prim Hand C.M.A. Office 03/27/2012 [facility] Miracle Hernandez M.D., 715.14 Osteoarthrosis Visit 11:20a Medicine FACP Localized Prim Hand Office 03/15/2012 [facility] Miracle Skinner, 719.44 Pain Joint Hand Visit 8:40a Medicine N.P. Office 03/08/2012 [facility] Miracle Henriquez Varn, 719.44 Pain Joint Hand Visit 10:00a Medicine N.P. Office 03/01/2012 [facility] Florence Skinner, 719.44 Pain Joint Hand Visit 3:40p Medicine N.P. Office 01/24/2012 [facility] Florence Skinner, 272.4 Hyperlipidemia Visit 2:20p Medicine N.P. Other Unspec Office 12/25/2011 [facility] Florence Skinner, 564.00 Constipation Visit 2:20p Medicine N.P. Unspecified Office 11/30/2011 [facility] Florence Skinner, 599.0 UTI Urinary Tract Visit 11:40a Medicine N.P. Infection Site Not Spec 787.91 Diarrhea Office Visit 11/24/2011 3:00p [facility] Florence Skinner, V70.0 Examination Medicine N.P. 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 General Medical Routine AT Health Care Facility 708.9 Urticaria Unspec Office Visit 11/19/2009 3:45p DO Not Use Katarzyna Mary, 708.9 Urticaria Unspec Aida Ferrari, FACP Office Visit 11/11/2009 9:30a DO Not Use Katarzyna Mary, 240.9 Goiter Unspec Aida Ferrari, FACP 300.00 Anxiety State Unspec Office Visit 08/30/2009 8:30a DO Not Use Florence Varn, 300.00 Anxiety State Gr[employer] Attendant[facility] N.P. Unspec Office Visit 07/28/2009 2:00p DO Not Use Florence Varn, 300.00 Anxiety State Gr[employer] Attendant[place] N.P. Unspec 309.0 Adjustment Disorder With Depression Office Visit 04/30/2009 DO Not Use Florence Varn, 465.9 URI Upper 3:00p [employer] Att[facility] N.P. Respiratory Infections Acute Unspec Sites Office Visit 04/22/2009 DO Not Use Katarzyna Mary, 915.7 Infection 4:00p Aida Ferrari, FACP Superficial Foreign Body Fingers Infected Office Visit 10/20/2008 DO Not Use Katarzyna Mary, 723.1 Cervicalgia 11:15a Aida Ferrari, FACP 300.00 Anxiety State Unspec Office Visit 09/18/2008 10:30a DO Not Use Katarzyna Mary, 723.1 Cervicalgia Aida Ferrari, FACP Office Visit 09/04/2008 9:45a DO Not Use Katarzyna Mary, 719.40 Pain Joint Site Aida Ferrari, FACP Unspec 346.90 Migraine Unspec W/O Intractable W/O Status Migrainosus Office Visit 07/30/2008 1:30p DO Not Use Katarzyna Mary, 716.99 Arthropathy Aida Ferrari, FACP Unspec Multiple Sites 465.9 URI Upper Respiratory Infections Acute Unspec Sites 300.00 Anxiety State Unspec Office Visit 03/24/2008 12:00p DO Not Use Katarzyna Mary, 719.41 Pain Joint Aida Ferrari, FACP Shoulder Region Office Visit 02/10/2008 11:45a DO Not Use Katarzyna Mary, 726.10 Bursae & Tendon Aida Ferrari, FACP Disorders Shoulder Region Unspec 524.60 Temporomandibular Joint Disorders Unspec Office Visit 10/07/2007 DO Not Use Florence 461.9 Sinusitis Acute 11:30a Gwen[place] Varn, N.P. Unspec Office Visit 09/26/2007 DO Not Use Florence 461.9 Sinusitis Acute 9:00a Gwen[place] Varn, N.P. Unspec Office Visit 09/10/2007 DO Not Use Florence 461.9 Sinusitis Acute 10:15a [facility]wen[place] Varn, N.P. Unspec Office Visit 08/06/2007 DO Not Use Katarzyna Mary, 616.10 Vaginitis & 11:45a Aida Ferrari, FACP Vulvovaginitis Unspec Office Visit 07/25/2007 DO Not Use Katarzyna Mary, 461.9 Sinusitis Acute 11:45a Grill AttendantBrenda Ferrari, FACP Unspec Office Visit 06/03/2007 DO Not Use Florence V58.30 Encounter For 8:45a [facility] Varn, N.P. Change Or Removal Nonsurgical Wound Dressing 959.5 Injury Finger Other & Unspec Office Visit 05/27/2007 DO Not Use Florence 558.9 Gastroenteritis & 2:45p [facility] Varn, N.P. Colitis Noninfectious Other 782.0 Skin Sensation Disturbance 300.00 Anxiety State Unspec Office Visit 04/29/2007 DO Not Use Florence 558.9 Gastroenteritis & 2:30p [facility] Varn, N.P. Colitis Noninfectious Other 300.00 Anxiety State Unspec V04.81 Need For Prophylactic Vaccination & Inoculation/Influenza Plan of Treatment Future Appointment(s):05/26/2019 1:45 pm - Denice Quintana MD at [facility]03/05/2019 2:20 pm - Florence Skinner, N.P. at [facility] Grzflbyj70/23/2019 - Denice Quintana MDJ45.909 Unspecified asthma, uncomplicatedFollow up:6 nxmlrdL46.9 Gastro-esophageal reflux disease without liojwshgiaiL92.33 Obstructive sleep apnea (adult) (pediatric)
[2018-12-11 09:22] VITALS: BP 125/77
[2018-12-11] MEDS ORDERED: Tetan/Diph/Pertus SYR(Tdap)* 0.5 ML SYR(BOOSTRIX) use SYR IM ONE (10:02)
--- NOTE | 2018-12-11 10:07 | UC ---
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 Patient states the wound bled heavily and she washed it and scrubbed it with warm soapy water. Patient reported to her consulting solution manager who will directed her to come here. Patient states she received 2 of the 3 hepatitis B series immunizations but stopped because of the rash. Patient denies being immunocompromised or any other medical history. Patient states that that was likely left over from yesterday. Patient does not know the source of the needle or motor she will appointment. Patient's medications reviewed this visit titer patient's PCP and her last tetanus was in 2008 - History of Current Complaint Chief Complaint: UCGeneralIllness Stated Complaint: FINGER POKE Time Seen by Provider: 12/11/18 09:46 PMH/Surg Hx/FS Hx/Imm Hx Previously Healthy: Yes Other History Of: Negative For: HIV, Hepatitis B, Hepatitis C, Anticoagulant Therapy - Surgical History Surgical History: Yes Surgery Procedure, Year, and Place: TUBAL LIGATION;CHOLECYSTECTOMY ; HEMORRHOIDECTOMY 1992;R CYSTO STENT 10/07/14 [facility] & REMOVED;Lymph node removal- BENIGN;scar tissue removed from ureter 10/14;LEFT BREAST BIOPSY-benign ( W/ BIOPSY CLIP). CATARACTS - Family History Known Family History: Positive: Hypertension, Diabetes, Non-Contributory - Social History Occupation: Employed Full-time Lives: With Family Alcohol Use: Rare Substance Use Type: None Smoking Status (MU): Former Smoker Type: Cigarettes Amount Used/How Often: 3 YEARS Length of Time of Smoking/Using Tobacco: from age [age] Have You Smoked in the Last Year: No When Did the Patient Quit Smoking/Using Tobacco: quit long time ago Review of Systems All Other Systems Reviewed And Are Negative: Yes Constitutional: Positive: Negative Skin: Positive: Other - needle stick Psychological: Positive: Anxious Is Patient Immunocompromised?: No Physical Exam - Summary Physical Exam Summary: Vital Signs Reviewed: Yes A+Ox3, no distress Eyes: Conjunctiva Clear ENT: Hearing grossly normal neck: supple Respiratory: Positive: No respiratory distress, No accessory muscle use Cardiovascular: skin color reflect adequate perfusion Musculoskeletal Exam: SHERIDAN x 4 without difficulty Neurological: Positive: Alert, ambulatory without difficulty Psychological: Positive: Normal Response To Family Skin: Positive: no rash, no ecchymosis no active bleeding, no wound Triage Information Reviewed: Yes Vital Signs: Initial Vital Signs Temp 99.1 F 12/11/18 09:17 Pulse 92 12/11/18 09:17 Resp 18 12/11/18 09:17 BP 125/77 12/11/18 09:17 Pulse Ox 96 12/11/18 09:17 Needlestick Course/Dx - Course Course Of Treatment: Patient presents to urgent care following a needle stick at work. Patient was stuck with a needle that was in a garbage bag from a research animal lab [place]. Patient has had partial hepatitis B vaccination. Patient states she cleansed the wound thoroughly. Patient states she came today because her boss instructed her to. Patient is not immunocompromised. Patient's tetanus is due as her last one was in 2008 is confirmed by her primary. On exam vital signs are stable. Patient without any focal findings. Had a long discussion, the patient regarding care. Will give a tetanus shot. We will check hepatitis C knee and HIV. Discussed with patient this is considered very low risk exposure. Patient declined prophylaxis for HIV. Patient will follow with Dr. Segal to get these lab results. Patient instructed to monitor her finger for wound care strict return precautions. Patient comfortable in agreement with plan. - Diagnoses Provider Diagnoses: Puncture wound Discharge - Sign-Out/Discharge Documenting (check all that apply): Patient Departure All imaging exams completed and their final reports reviewed: No Studies - Discharge Plan Condition: Stable Disposition: HOME Patient Education Materials: Diphtheria/Pertussis/Tetanus Vaccine (By injection ), Puncture Wound (ED) Referrals: Rhona Street MD [Primary Care Provider] - Joseph Segal MD [Medical Doctor] - (Call today to schedule a follow-up appointment) Additional Instructions: Keep wound clean and dry monitor for signs of infection - reddness, red streaking, swelling, pain, odor You received a tetanus vaccine today - you will likely have arm soreness tomorrow Contact Dr. Segal to schedule a follow-up appointment this week - Billing Disposition and Condition Condition: STABLE Disposition: Home
[2018-12-11 12:50] LABS: Rapid HIV 1 Nonreactive (Nonreactive)
[2018-12-11 13:37] LABS: Hepatitis B Surface Antigen Negative (Negative)
[2018-12-11 13:54] LABS: Hepatitis B Surface Ab Not Immune (Immune); Hepatitis C Antibody Negative (Negative)
== END 2018-12-11 10:29 | disposition home or self-care (01) ==
LOC: UCEAST 09:01
DX: Z77.21 Contact with and (suspected) exposure to potentially hazardous body fluids (principal); Z87.891 Personal history of nicotine dependence
CPT/HCPCS: 36415; 86703; 86706; 86803; 87340; 90715; 99212; G0463